=== PATIENT | male | born 1945 | race Caucasian/White ===

== ENCOUNTER 2018-01-31 16:51 | Inpatient (IN) ==
[2018-01-31] MEDS ORDERED: methylPREDNISolone 125 MG/2 ML VIAL IVP ONE (17:32)
[2018-01-31] MEDS ORDERED: Ipratropium/Albuterol Neb 3 ML IH ONE ×2 (17:32→20:02)
--- NOTE | 2018-01-31 17:34 | Emergency Department Note ---
Disposition Clinical Impression: Acute exacerbation of chronic obstructive airways disease, Status post aortic valve replacement, Pneumonia, Abnormal EKG, Abnormal liver function tests, Frail elderly, Hypokalemia Disposition: Admitted As Inpatient Referrals: Raheem Hubbard MD [Primary Care Provider] - Forms: ED Satisfaction Letter General Adult HPI - General Chief complaint: ED Shortness of Breath/Dyspnea Stated complaint: FARIBA Time Seen by Provider: 01/31/18 17:06 Source: EMS Limitations: no limitations - History of Present Illness HPI Narrative: 72-year-old male with history of emphysema reports emergency department complaining of shortness of breath over the last 2 weeks which is Worse. The patient does not have an oxygen requirement at home has been taking steroid medication at home and he reports that they have "given up" indicating that he has had no improvement and is worsening. The patient denies chest pain coughing up blood leg swelling or pain. He is not anticoagulated. No history of previous DVT PE or cancer, he states he has had a cardiac valve replacement but does not take diuretics. As been no fever abdominal pain vomiting diarrhea confusion or any difficulty walking talking hearing seeing or speaking no history of acute back pain. The patient describes a chronic left eye defect. Pain Scale: 0 - Related Data Home Medications Medication Instructions Recorded Confirmed Aspirin 81 mg PO DAILY 09/02/16 01/31/18 Atorvastatin [Lipitor] 40 mg PO DAILY 09/02/16 01/31/18 Metoprolol XL (24 HR) Succ [Toprol 25 mg PO DAILY 09/02/16 01/31/18 Xl] Albuterol Sulfate [Ventolin Hfa] 2 puff IH Q4-6H PRN 01/31/18 01/31/18 Fluticasone/Salmeterol [Advair 1 puff IH BID 01/31/18 01/31/18 250-50 Diskus] Latanoprost [Xalatan] 1 drop OP HS 01/31/18 01/31/18 predniSONE [PredniSONE] See Taper PO DAILY 01/31/18 01/31/18 Allergies Allergy/AdvReac Type Severity Reaction Status Date / Time No Known Allergies Allergy Verified 09/02/16 09:28 All systems ED: reviewed and negative except as stated. Past Medical History - Past Medical History Medical history: Reports: COPD, hyperlipidemia Psychiatric history: Reports: no psych history - Social History Smoking Status: Former smoker Smokeless Tobacco Status: No Alcohol use: Reports: none Drug use: Reports: none Physical Exam - General Limitations: no limitations General appearance: alert - Head Head exam: atraumatic, normocephalic, normal inspection - Eye Eye exam: Present: other (Chronic left eye defects noted right eye unremarkable) - ENT ENT exam: normal exam, normal oropharynx, mucous membranes moist, TM's normal bilaterally, normal external ear exam - Neck Neck exam: Present: normal inspection, full ROM, trachea midline - Chest Chest inspection: Present: symmetric chest wall rise. Absent: tenderness - Respiratory Respiratory exam: Present: wheezes, prolonged expiratory phase. Absent: normal lung sounds bilaterally, respiratory distress, accessory muscle use - Cardiovascular Cardiovascular exam: Present: regular rate, normal rhythm, normal heart sounds - Abdominal Exam Abdominal exam: Present: soft, Non-Tender, normal bowel sounds, diminished bowel sounds. Absent: tenderness, distention, guarding, rebound, rigidity, pulsatile mass - Extremities Exam Extremities exam: Present: normal inspection, full ROM, normal capillary refill. Absent: tenderness, pedal edema, calf tenderness - Back Exam Back exam: Present: normal inspection, full ROM. Absent: tenderness, CVA tenderness (R), CVA tenderness (L), vertebral tenderness - Neurological Exam Neurological exam: Present: alert, oriented X3, other (Chronic left eye defect otherwise cranial nerves II through XII grossly intact.). Absent: motor sensory deficit - Skin Skin exam: Present: warm, dry, intact, normal color. Absent: rash, cyanosis, diaphoresis, erythema, pallor, mottled Course Vital Signs Temperature 97.1 F L 01/31/18 16:55 Pulse Rate 109 01/31/18 16:55 Respiratory Rate 22 01/31/18 16:55 Blood Pressure 156/105 01/31/18 16:55 O2 Sat by Pulse Oximetry 95 01/31/18 16:55 Temperature 97.1 F L 01/31/18 16:55 Pulse Rate 109 01/31/18 16:55 Respiratory Rate 22 01/31/18 16:55 Blood Pressure 156/105 01/31/18 16:55 O2 Sat by Pulse Oximetry 95 01/31/18 16:55 Oxygen Delivery Oxygen Delivery Nasal Cannula Medical Decision Making - MDM Narrative Medical decision making narrative: The patient describes significant shortness of breath, he does not usually wear oxygen, he was placed on 5 L in the emergency department and giving 2 breathing treatments as well as steroids and antibiotics. His chest x-ray shows changes suggestive of pneumonia. He is slightly hypokalemic and hyperglycemic and does have abnormal liver function tests. Blood cultures were sent. BNP negative EKG shows slight ST depressions laterally, no ST elevations, troponin negative. The patient is not describing chest pain. The patient is slightly tachycardic and has been dyspneic, PE is certainly a possibility, d-dimer has been ordered and is pending. The patient seems to be significantly symptomatic from the dyspneic standpoint and has had persistent wheezing. He reports he has been taking steroid medication outpatient and it is no longer helpful. Based on the patient's persistent wheezing status post breathing treatments, apparent pneumonitis, and persistent symptomatology despite outpatient therapy, with significant EKG abnormalities noted, I thought it would be appropriate to admit the patient to the hospital. Further imaging may be helpful to discern the pulmonic changes described on chest x-ray. D-dimer has been ordered at the request the hospitalist who will image further if deemed necessary. The patient is highly greeable to admission. - Lab Data Lab results reviewed: Yes I reviewed the patient's lab results. Result diagrams: 01/31/18 17:47 01/31/18 17:47 Lab Results 01/31/18 01/31/18 01/31/18 Range/Units 17:47 17:47 17:47 WBC 7.9 (4.3-11.1) K/mcL RBC 4.78 (4.19-5.50) M/mcL Hgb 15.0 (12.9-16.9) g/dL Hct 43.7 (37.5-50.1) % MCV 91.4 (83.0-100.0) fL MCH 31.4 (28.0-33.3) pg MCHC 34.3 (31.6-35.5) g/dL RDW 14.2 (11.5-14.5) % Plt Count 134 L (140-400) K/mcL MPV 10.0 (9.4-12.4) fL Immature Gran % 1.8 (0-4) % Seg Neutrophils % 80.3 % Lymphocytes % 9.9 % Monocytes % 7.5 % Eosinophils % 0.0 % Basophils % 0.5 % Neutrophils # 6.3 (1.6-8.9) K/mcL Lymphocytes # 0.8 (0.6-4.6) K/mcL Monocytes # 0.6 (0.0-1.3) K/mcL Eosinophils # 0.0 (0.0-0.6) K/mcL Basophils # 0.0 (0.0-0.2) K/mcL Nucleated RBCs/100 WBC 0.3 H (0) /100 WBC PT 12.8 H (9.4-12.1) Seconds INR 1.2 APTT 26.8 (26.0-36.0) Seconds Sodium 144 (136-145) mEq/L Potassium 3.2 L (3.5-5.1) mEq/L Chloride 102 (98-107) mEq/L Carbon Dioxide 27 (23-29) mEq/L BUN 23 (8-23) mg/dL Creatinine 0.73 (0.70-1.30) mg/dL Est GFR ( Amer) > 60 (> 60) Est GFR (Non-Af Amer) > 60 (> 60) BUN/Creatinine Ratio 32 H (6-26) Glucose 90 (70-105) mg/dL Calculated Osmolality 301 H (280-300) Lactic Acid (0.5-2.2) mmol/L Calcium 8.9 (8.6-10.3) mg/dL Total Bilirubin 1.4 H (0.3-1.0) mg/dL Direct Bilirubin 0.4 H (0.0-0.2) mg/dL Indirect Bilirubin 1.0 (0.0-1.2) mg/dL AST 42 H (13-39) Units/L ALT 30 (7-52) Units/L Alkaline Phosphatase 79 (34-104) Units/L Troponin I < 0.03 (< 0.04) ng/mL C-Reactive Protein (Less than 10) mg/L B-Natriuretic Peptide (Less than 100) pg/mL Serum Total Protein 6.5 (6.4-8.9) g/dL Albumin 3.7 (3.5-5.7) g/dL Globulin 2.8 (2.4-3.5) g/dL Albumin/Globulin Ratio 1.3 (1.1-2.2) 01/31/18 01/31/18 01/31/18 Range/Units 17:47 17:47 17:47 WBC (4.3-11.1) K/mcL RBC (4.19-5.50) M/mcL Hgb (12.9-16.9) g/dL Hct (37.5-50.1) % MCV (83.0-100.0) fL MCH (28.0-33.3) pg MCHC (31.6-35.5) g/dL RDW (11.5-14.5) % Plt Count (140-400) K/mcL MPV (9.4-12.4) fL Immature Gran % (0-4) % Seg Neutrophils % % Lymphocytes % % Monocytes % % Eosinophils % % Basophils % % Neutrophils # (1.6-8.9) K/mcL Lymphocytes # (0.6-4.6) K/mcL Monocytes # (0.0-1.3) K/mcL Eosinophils # (0.0-0.6) K/mcL Basophils # (0.0-0.2) K/mcL Nucleated RBCs/100 WBC (0) /100 WBC PT (9.4-12.1) Seconds INR APTT (26.0-36.0) Seconds Sodium (136-145) mEq/L Potassium (3.5-5.1) mEq/L Chloride (98-107) mEq/L Carbon Dioxide (23-29) mEq/L BUN (8-23) mg/dL Creatinine (0.70-1.30) mg/dL Est GFR ( Amer) (> 60) Est GFR (Non-Af Amer) (> 60) BUN/Creatinine Ratio (6-26) Glucose (70-105) mg/dL Calculated Osmolality (280-300) Lactic Acid 1.8 (0.5-2.2) mmol/L Calcium (8.6-10.3) mg/dL Total Bilirubin (0.3-1.0) mg/dL Direct Bilirubin (0.0-0.2) mg/dL Indirect Bilirubin (0.0-1.2) mg/dL AST (13-39) Units/L ALT (7-52) Units/L Alkaline Phosphatase (34-104) Units/L Troponin I (< 0.04) ng/mL C-Reactive Protein 152 H (Less than 10) mg/L B-Natriuretic Peptide 170 H (Less than 100) pg/mL Serum Total Protein (6.4-8.9) g/dL Albumin (3.5-5.7) g/dL Globulin (2.4-3.5) g/dL Albumin/Globulin Ratio (1.1-2.2) - Radiology Data Radiology results reviewed: Yes I reviewed the patient's radiology results.
[2018-01-31 18:00] LABS: Basophils % 0.5 %; Hematocrit 43.7 % (37.5-50.1); Immature Granulocytes % 1.8 % (0-4); Lymphocytes # 0.8 K/mcL (0.6-4.6); Lymphocytes % 9.9 %; Mean Corpuscular HGB Conc 34.3 g/dL (31.6-35.5); Mean Corpuscular Hemoglobin 31.4 pg (28.0-33.3); Mean Corpuscular Volume 91.4 fL (83.0-100.0); Monocytes # 0.6 K/mcL (0.0-1.3); Monocytes % 7.5 %; Neutrophils # 6.3 K/mcL (1.6-8.9); Nucleated Red Blood Cells 0.3 /100 WBC (0); Platelet Count 134 K/mcL (140-400); Red Blood Count 4.78 M/mcL (4.19-5.50); Red Cell Distribution Width 14.2 % (11.5-14.5); Segmented Neutrophils % 80.3 %
[2018-01-31 18:06] LABS: INR 1.2; Prothrombin Time 12.8 Seconds (9.4-12.1)
[2018-01-31 18:09] LABS: Activated Partial Thrombo Time 26.8 Seconds (26.0-36.0)
[2018-01-31 18:25] LABS: Troponin I < 0.03 ng/mL (< 0.04)
[2018-01-31 18:28] LABS: Alanine Aminotransferase 30 Units/L (7-52); Albumin 3.7 g/dL (3.5-5.7); Albumin/Globulin Ratio 1.3 (1.1-2.2); Alkaline Phosphatase 79 Units/L (34-104); Aspartate Amino Transferase 42 Units/L (13-39); BUN/Creatinine Ratio 32 (6-26); Bilirubin,Direct 0.4 mg/dL (0.0-0.2); Bilirubin,Total 1.4 mg/dL (0.3-1.0); Blood Urea Nitrogen 23 mg/dL (8-23); Calcium 8.9 mg/dL (8.6-10.3); Carbon Dioxide 27 mEq/L (23-29); Chloride 102 mEq/L (98-107); Globulin 2.8 g/dL (2.4-3.5); Glucose 90 mg/dL (70-105); Osmolality,Calculated 301 (280-300); Potassium 3.2 mEq/L (3.5-5.1); Sodium 144 mEq/L (136-145); Total Protein 6.5 g/dL (6.4-8.9); eGFR For African Americans > 60 (> 60); eGFR For Non-African Americans > 60 (> 60)
[2018-01-31] MEDS ORDERED: Levofloxacin 750 MG/150 ML 750 MG/150 ML BAG IVPB ONE (19:25)
[2018-01-31] MEDS ORDERED: Naloxone 0.4 MG/ML INJ IVP PRN (21:12)
[2018-01-31] MEDS ORDERED: Acetaminophen 325 MG TABLET PO PRN (21:12)
--- NOTE | 2018-01-31 21:38 | Internal Med History&Physical ---
Date of Encounter: 01/31/18 Time of Encounter: 21:36 Internal Medicine - H&P: HPI Chief complaint: shortness of breath Admitted From: Emergency Dept Plans for Post Hospital Care: Home History of present illness: Mr. Baker is a 72 year old male with past medical history of COPD, hypertension , carotid artery disease, and a bioprosthetic aortic valve who presents to [facility] on 01/31/2018 with complaints of shortness of breath. Patient states his shortness of breath began on of last week. He does have chronic dyspnea at baseline. However, he noted that he began to become extremely exertionally dyspneic. His exertional dyspnea has increased, and became so severe today that he decided to come to the emergency department. He does report a cough and pain in his left shoulder during coughing. He reports some chest congestion and describes his cough as wet, yet nonproductive. Patient does have a 50 year pack history of cigarette smoking. He reports smoking cessation appoximately one week ago. Patient underwent a carotid endarterectomy in September 2016. He underwent aortic valve replacement with a bioprosthetic valve approximately 3 [address] performed [address] Vee. He denies any history of blood clots including DVTs or PE. He denies any recent travel. He is not currently on any anticoagulation. He does report a syncopal episode last week in the morning on Tuesday. He states he was taking his heart medication, and all he remembers is hitting the ground and waking up fairly quickly. He denies any dizziness, lightheadedness, or shortness of breath prior to syncopizing. Currently, patient denies any chest pain, palpitations, nausea, or diaphoresis. He denies any diarrhea, melena, hematochezia, or hematemesis. He denies any lower extremity swelling. He denies any abdominal pain, headaches, dizziness, or lightheadedness. Past Med Surg Social Fam HX - Past Medical History Attestation: Yes The following information was validated with the patient. Source: patient, old records reviewed Medical history: COPD, hyperlipidemia, valvular heart disease Psychiatric history: no psych history - Past Surgical History Surgical History: carotid endarterectomy, heart valve replacement (Bioprosthetic ) - Social History Smoking Status: Former smoker (Quit 1 week ago) Smokeless Tobacco Status: No Alcohol use: none Drug use: none - Family History Father Living Status: Hx Family Cardiac Disorders: Yes Mother Living Status: Hx Family GI Disorders: Yes (cirrhosis) Internal Medicine - H&P: Meds Aspirin 81 mg PO DAILY 09/02/16 [History] Atorvastatin [Lipitor] 40 mg PO DAILY 09/02/16 [History] Metoprolol XL (24 HR) Succ [Toprol Xl] 25 mg PO DAILY 09/02/16 [History] Albuterol Sulfate [Ventolin Hfa] 2 puff IH Q4-6H PRN 01/31/18 [History] Fluticasone/Salmeterol [Advair 250-50 Diskus] 1 puff IH BID 01/31/18 [History] Latanoprost [Xalatan] 1 drop OP HS 01/31/18 [History] predniSONE [PredniSONE] See Taper PO DAILY 01/31/18 [History] 3 Allergy/AdvReac Type Severity Reaction Status Date / Time No Known Allergies Allergy Verified 09/02/16 09:28 All Systems PM: A 10-system review of systems was performed and is negative for pertinent findings except as documented above in the HPI. - Constitutional Constitutional: no chills, no fever(s), no night sweats, no weakness, no weight gain, no weight loss - EENT Eyes: other visual disturbances (Patient is legally blind in his left eye.), no decreased night vision Nose, mouth and throat: no nasal congestion, no nasal discharge, no sinus pain, no sinus pressure, no sore throat - Cardiovascular Cardiovascular ROS IM: dyspnea, dyspnea on exertion, no chest pain, no claudication, no diaphoresis, no edema, no irregular heart rhythm, no lightheadedness, no orthopnea, no palpitations, no paroxysmal nocturnal dyspnea , no syncope - Respiratory Respiratory: cough, dyspnea, dyspnea on exertion, chest congestion, pain with cough, no hemoptysis, no excessive phlegm production - Gastrointestinal Gastrointestinal: no abdominal pain, no diarrhea, no hematemesis, no hematochezia, no loose stools, no melena, no nausea, no odynophagia - Genitourinary Genitourinary ROS male: no difficulty urinating, no dysuria, no hematuria - Musculoskeletal Musculoskeletal ROS IM: no joint swelling, no limited range of motion - Integumentary Integumentary IM: no erythema, no rash, no jaundice - Neurological Neurological ROS: no abnormal movements, no abnormal speech, no focal weakness, no frequent falls, no lack of coordination - Endocrine Endocrine IM: no cold intolerance, no heat intolerance - Constitutional Vitals: Temp Pulse Resp BP Pulse Ox 97.1 F L 68 16 141/84 95 01/31/18 16:55 01/31/18 21:00 01/31/18 21:00 01/31/18 21:00 01/31/18 21:00 General appearance: Present: cooperative, mild distress, A&O X 3, pleasant, answers questions appropriately - Head Head exam: Present: atraumatic, normocephalic - Eye Eye exam: Present: conjuntiva pink, sclera anicteric Additional comments: Left eye chronically droopy and appears with white film over the eye. - Neck Neck exam general surgery: Present: supple, trachea midline. Absent: lymphadenopathy - Respiratory Respiratory exam: Present: prolonged expiratory phase, rhonchi, tachypnea. Absent: accessory muscle use, rales, wheezes - Cardiovascular Cardiovascular exam: Present: +S1, +S2, tachycardia. Absent: diastolic murmur, gallop, rubs, systolic murmur - GI/Abdominal GI/Abdominal exam: Present: normal bowel sounds, soft, no peritoneal signs. Absent: distended, guarding, hernia, tenderness - Extremities Exam Extremities exam: Present: warm, radial pulses palpable and symmetrical. Absent : calf tenderness, cyanotic, pedal edema - Neurological Exam Neurological exam: Present: CN II-XII intact, oriented X3, no focal deficits. Absent: pronater drift, facial droop, speech deficit - Skin Skin exam: Present: dry, intact, warm Internal Med - H&P Results - Labs CBC & Chem 7: 01/31/18 17:47 01/31/18 17:47 - Assessment and plan (1) Acute exacerbation of chronic obstructive airways disease Current Visit: Yes Status: Acute Assessment and plan: 72-year-old male with acute on chronic shortness of breath presents to the ED tachycardic, tachypnea, and hypoxic. -Chest x-ray concerning for left-sided subpulmonic pulmonary effusion. -Patient satting mid 90s on 5 L nasal cannula. -Still suspicious for underlying PE. D-dimer obtained was positivly elevated to 1200. We will progress with CTA. -Patient markedly wheezy and rhonchorous on arrival. We will continue every 4 hours duo nebs, cardiac telemetry, IV steroids, and IV Levaquin. -Continue to monitor closely. (2) Dyspnea Current Visit: Yes Status: Acute Assessment and plan: Suspect this is due to COPD exacerbation. However, due to patient's pleuritic chest pain, persistent tachycardia, and dyspnea, we will obtain CTA to rule out pulmonary embolism. -consider limited echo Qualifiers: Dyspnea type: dyspnea on exertion Qualified Code(s): R06.09 - Other forms of dyspnea (3) Pneumonia Current Visit: Yes Status: Acute Assessment and plan: Will provide coverage for potential underlying pneumonia suggested on chest x- ray with IV Levaquin. -Will await results of CTA obtained to rule out PE to further guide treatment. Qualifiers: Pneumonia type: due to unspecified organism Laterality: left Lung location: unspecified part of lung Qualified Code(s): J18.9 - Pneumonia, unspecified organism (4) Abnormal EKG Current Visit: Yes Status: Acute Assessment and plan: Patient with ST depression in the lateral leads and EKG obtained in ED. Suspect this is secondary to poor respiratory status. Suspect demand ischemia. -We will repeat EKG in the morning and trend troponins. -consider cardiology consult (5) Hypokalemia Current Visit: Yes Status: Acute Assessment and plan: Replete as necessary. (6) Status post aortic valve replacement Current Visit: Yes Status: Chronic Assessment and plan: Chronic, stable. (7) DVT prophylaxis Current Visit: Yes Status: Acute Assessment and plan: Heparin 5000 units subcutaneous twice a day. - Time Spent With Patient Total time spent is greater than 50% in coordination of care (as documented) at patient's floor/unit and/or counseling patient:
[2018-01-31 22:01] LABS: Magnesium 2.1 mg/dL (1.6-2.6); Phosphorous 2.1 mg/dL (2.7-4.5)
[2018-01-31] MEDS ORDERED: Isovue-370 500 ML INFUS..BTL IV ONE (22:01)
[2018-01-31 22:03] LABS: Troponin I 0.04 ng/mL (< 0.04)
--- NOTE | 2018-01-31 22:05 | Event Note ---
Date of Encounter: 01/31/18 Time of Encounter: 21:58 Patient was seen and examined. I agree with the H&P as written by the Resident Physician. Patient with respiratory symptoms for a week or so. Came through the ED and is on 5L. Not sure how low his O2 was on RA. Was wheezing per ED and got a work up that showed no leukocytosis. K was 3.2. Trops <.03. Cough causes pain in the shoulders but no chest pain. EKG with mild ST depression in lateral leads. CXR with ??left basilar infiltrate and new moderate left subpulmonic pleural effision. He got IV steroids and a couple of nebs treatments. Got IV levaquin too. Patient is tachycardic and requiring 5 L O2. Also hypertensive Course breath sounds but no wheezing on my exam Tachycardic, S1, S2, Abd soft, NT, ND, +BS No edema Will admit and get D-dimers. CXR is not really informative. CTA chest if d-dimers elevated. CT chest w/o cont if not elevated c/w IV steroids and levaquin. Nebs. O2 support. Trend cardiac enzymes. ST depression maybe related to respiratory symptoms Would repeat an EKG in am. Consider a consult to cardio. Recent echo in October EF 60%. Mod diastolic dysfunction. Has a bioprosthetic valve. Consider limited echo
[2018-01-31] MEDS: methylPREDNISolone 125 MG/2 ML VIAL IVP SCH (23:05)
[2018-01-31] MEDS: Latanoprost 2.5 ML BOTTLE BOTH EYES SCH (23:05)
[2018-01-31] MEDS: *HR* Heparin 5,000 UNIT/ML VIAL SQ SCH (23:05)
[2018-02-01] MEDS: Ipratropium/Albuterol Neb 3 ML IH SCH ×6 (00:05→20:04)
[2018-02-01 03:40] LABS: Basophils % 0.2 %; Hematocrit 41.3 % (37.5-50.1); Hemoglobin 13.9 g/dL (12.9-16.9); Lymphocytes # 0.7 K/mcL (0.6-4.6); Lymphocytes % 9.2 %; Mean Corpuscular HGB Conc 33.7 g/dL (31.6-35.5); Mean Corpuscular Hemoglobin 30.3 pg (28.0-33.3); Mean Platelet Volume 10.4 fL (9.4-12.4); Monocytes # 0.3 K/mcL (0.0-1.3); Monocytes % 3.5 %; Neutrophils # 6.8 K/mcL (1.6-8.9); Platelet Count 124 K/mcL (140-400); Red Blood Count 4.59 M/mcL (4.19-5.50); Red Cell Distribution Width 14.3 % (11.5-14.5); Segmented Neutrophils % 85.1 %
[2018-02-01 03:56] LABS: BUN/Creatinine Ratio 27 (6-26); Blood Urea Nitrogen 19 mg/dL (8-23); Calcium 8.9 mg/dL (8.6-10.3); Carbon Dioxide 26 mEq/L (23-29); Chloride 102 mEq/L (98-107); Glucose 118 mg/dL (70-105); Osmolality,Calculated 301 (280-300); Potassium 3.2 mEq/L (3.5-5.1); Sodium 144 mEq/L (136-145); eGFR For African Americans > 60 (> 60); eGFR For Non-African Americans > 60 (> 60)
[2018-02-01] MEDS: *HR* Heparin 5,000 UNIT/ML VIAL SQ SCH ×2 (06:03→17:17)
[2018-02-01] MEDS: Budesonide/Formoterol 80/4.5 MDI IH SCH ×2 (08:00→20:04)
[2018-02-01] MEDS: Aspirin 81 MG TAB.CHEW PO SCH (08:10)
[2018-02-01] MEDS: methylPREDNISolone 125 MG/2 ML VIAL IVP SCH ×3 (08:10→23:26)
[2018-02-01] MEDS: Levofloxacin 750 MG/150 ML 750 MG/150 ML BAG IVPB SCH (08:11)
[2018-02-01] MEDS ORDERED: Metoprolol XL (24 HR) Succ 25 MG TAB.ER.24H PO SCH (09:00)
[2018-02-01] MEDS ORDERED: Metoprolol XL (24 HR) Succ 25 MG TAB.ER.24H PO ONE (09:52)
--- NOTE | 2018-02-01 11:39 | Pulmonology Consult Note ---
Date of Encounter: 02/01/18 Time of Encounter: 11:30 Assessment and Plan (1) Hilar mass Current Visit: Yes Status: Acute Patient with left hilar mass with some mediastinal lymphadenopathy coming with some shortness of breath and cough given his risk factors this looks like a primary lung malignancy. To keep nothing by mouth from midnight. Will do EBUS under general anesthesia tomorrow morning. (2) Acute exacerbation of chronic obstructive airways disease Current Visit: Yes Status: Acute To continue with bronchodilators steroids, antibiotics (3) Acute and chronic respiratory failure with hypoxia Current Visit: Yes Status: Acute Continue O2 supplementation to keep SPO2 around 90. History of Present Illness Consult date: 02/01/18 Requesting physician: Senait Lemos Chief complaint: Shrotness of breadth History of present illness: 72-year-old male with past medical history significant for O2 dependent COPD with emphysematous changes, hypertension, carotid artery disease, aortic valve disease had a bioprosthetic valve replacement 3 years ago. Had carotid endarterectomy in 2016. Coming with one week of shortness of breath which is more than usual from his baseline started to have cough and little bit of left shoulder pain, denies much cough not much sputum production no hemoptysis. Baseline his exercise tolerance is poor, has a 50 pack smoking history which he stopped 1 week ago. Denies any fever or chills any undue chest pain or chest tightness denies any abdominal symptoms denies any headache, double vision, any other neurological symptoms. During the workup patient had a CTA which was negative for PE but found to have this left hilar mass with possible postobstructive pneumonia. Pulmonary was consulted for evaluation of his hilar mass and possible biopsy. Past Med Surg Social Fam HX - Past Medical History Medical history: COPD, hyperlipidemia, valvular heart disease Psychiatric history: no psych history - Past Surgical History Surgical History: carotid endarterectomy, heart valve replacement (Bioprosthetic ) - Social History Smoking Status: Former smoker (Quit 1 week ago) Smokeless Tobacco Status: No Alcohol use: none Drug use: none - Family History Father Living Status: Hx Family Cardiac Disorders: Yes Mother Living Status: Hx Family GI Disorders: Yes (cirrhosis) Medications and Allergies Aspirin 81 mg PO DAILY 09/02/16 [History] Atorvastatin [Lipitor] 40 mg PO DAILY 09/02/16 [History] Metoprolol XL (24 HR) Succ [Toprol Xl] 25 mg PO DAILY 09/02/16 [History] Albuterol Sulfate [Ventolin Hfa] 2 puff IH Q4-6H PRN 01/31/18 [History] Fluticasone/Salmeterol [Advair 250-50 Diskus] 1 puff IH BID 01/31/18 [History] Latanoprost [Xalatan] 1 drop OP HS 01/31/18 [History] predniSONE [PredniSONE] See Taper PO DAILY 01/31/18 [History] 3 Allergy/AdvReac Type Severity Reaction Status Date / Time No Known Allergies Allergy Verified 09/02/16 09:28 All Systems: The remainder of the systems were reviewed and are negative Physical Examination Vital Signs: Vital Signs, Last 4 Hours Temp Pulse Resp BP Pulse Ox 02/01/18 11:17 16 99 02/01/18 08:00 16 99 02/01/18 07:41 97.8 F 78 16 168/97 94 Auscultation: bilateral: wheezes Results - Laboratory Findings CBC and BMP: 02/01/18 03:14 02/01/18 03:14 PT/INR, D-dimer PT 12.8 Seconds (9.4-12.1) H 01/31/18 17:47 D-Dimer 1249 ng/mLFEU (0-500) H 01/31/18 21:24 Abnormal lab findings: Abnormal lab results Plt Count 124 K/mcL (140-400) L 02/01/18 03:14 Nucleated RBCs/100 WBC 0.3 /100 WBC (0) H 01/31/18 17:47 PT 12.8 Seconds (9.4-12.1) H 01/31/18 17:47 D-Dimer 1249 ng/mLFEU (0-500) H 01/31/18 21:24 Potassium 3.2 mEq/L (3.5-5.1) L 02/01/18 03:14 BUN/Creatinine Ratio 27 (6-26) H 02/01/18 03:14 Glucose 118 mg/dL (70-105) H 02/01/18 03:14 Calculated Osmolality 301 (280-300) H 02/01/18 03:14 Phosphorus 2.1 mg/dL (2.7-4.5) L 01/31/18 21:24 Total Bilirubin 1.4 mg/dL (0.3-1.0) H 01/31/18 17:47 Direct Bilirubin 0.4 mg/dL (0.0-0.2) H 01/31/18 17:47 AST 42 Units/L (13-39) H 01/31/18 17:47 C-Reactive Protein 152 mg/L (Less than 10) H 01/31/18 17:47 B-Natriuretic Peptide 170 pg/mL (Less than 100) H 01/31/18 17:47 - Clinical Findings Intake & Output: Intake & Output 01/31/18 02/01/18 02/01/18 23:59 07:59 15:59 Output Total 320 / 320 Balance -320 / -320 Consult Discharge Plan - Plan Referrals: Melquiades Roberts MD [Partnered Physician] - 02/15/18 2:45 pm
--- NOTE | 2018-02-01 12:29 | Electrocardiograph Report ---
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
--- NOTE | 2018-02-01 12:31 | Electrocardiograph Report ---
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
--- NOTE | 2018-02-01 12:45 | Oncology Inp Consult Note ---
<Marisel Gilmore - Last Filed: 02/01/18 16:49> Date of Encounter: 02/01/18 Time of Encounter: 12:43 Assessment and Plan (1) Hilar mass Status: Acute Assessment and plan: CTA reveals left hilar mass with invasion of the left lower lobe airway, and secondary collapse and consolidation of the left lower lobe. Enlarged AP window lymph nodes also observed. There is a small moderate-sized left pleural effusion. The radiographic evidence as detailed above which is concerning for primary lung carcinoma was discussed with patient at bedside today. Pulmonary consulted for potential bronch with biopsy, planned for tomorrow morning. Will likely plan for outpatient PET scan and Brain MRI once final pathology report received. Mr. Baker has decreased breath sounds to LLL, he is symptomatic with exertional dyspnea greatly limiting his activity. Now requiring oxygen per nasal cannula which is new for patient. Will arrange for follow up with medical oncology for discussion regarding final pathology, further staging workup and treatment discussion. Please refer to Dr. Peng's attestation below for additional details. - Data of Consult Patient: new to practice Consult date: 02/01/18 Requesting Physician: Moisés Orellana Primary Care Provider: Raheem Hubbard MD - Consult Narrative Reason for consult: Left hilar mass History of present illness: Mr. Baker is a 72 year old male with past medical history significant for COPD , hypertension, carotid artery disease, and a bioprosthetic aortic valve. Patient presented to [facility] on 01/31/2018 with complaints of progressive shortness of breath. He does have SOB at baseline but has began to experience extreme SOB on exertion which led to his presentation. He does report a cough and pain in his left shoulder during coughing. Patient underwent a carotid endarterectomy in September 2016. He underwent aortic valve replacement with a bioprosthetic valve approximately 3 years [address] performed [address] Vee. Mr. Baker has a 50 pack year history. He reports he quit smoking about one week ago. He lives at home with his . Past Med Surg Social Fam HX - Past Medical History Medical history: COPD, hyperlipidemia, valvular heart disease Psychiatric history: no psych history - Past Surgical History Surgical History: carotid endarterectomy, heart valve replacement (Bioprosthetic ) - Social History Smoking Status: Former smoker (Quit 1 week ago) Smokeless Tobacco Status: No Alcohol use: none Drug use: none - Family History Father Living Status: Hx Family Cardiac Disorders: Yes Mother Living Status: Hx Family GI Disorders: Yes (cirrhosis) Medications and Allergies Aspirin 81 mg PO DAILY 09/02/16 [History] Atorvastatin [Lipitor] 40 mg PO DAILY 09/02/16 [History] Metoprolol XL (24 HR) Succ [Toprol Xl] 25 mg PO DAILY 09/02/16 [History] Albuterol Sulfate [Ventolin Hfa] 2 puff IH Q4-6H PRN 01/31/18 [History] Fluticasone/Salmeterol [Advair 250-50 Diskus] 1 puff IH BID 01/31/18 [History] Latanoprost [Xalatan] 1 drop OP HS 01/31/18 [History] predniSONE [PredniSONE] See Taper PO DAILY 01/31/18 [History] 3 Allergy/AdvReac Type Severity Reaction Status Date / Time No Known Allergies Allergy Verified 09/02/16 09:28 Constitutional: Present: anorexia, fatigue, weakness, weight loss (4-6 pounds over past week ) Additional comments: 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 Absent: hemoptysis Gastrointestinal: Absent: abdominal pain, change in bowel habits, diarrhea, nausea, vomiting Additional comments: denies dysuria Musculoskeletal: Absent: numbness, tingling Integumentary: Absent: wounds Neurological: Absent: focal weakness, frequent falls Hematologic/Lymphatic: Present: as per HPI Oncology - Exam - Constitutional Vitals: Temp Pulse Resp BP Pulse Ox 98.0 F 106 19 149/77 92 02/01/18 12:02 02/01/18 12:02 02/01/18 12:02 02/01/18 12:02 02/01/18 12:02 General appearance: cooperative, no acute distress, no febrile Exam: chronically ill appearing - Head Head exam: Present: atraumatic - ENT ENT exam: Present: mucous membranes moist - Respiratory Respiratory exam: Present: decreased breath sounds. Absent: respiratory distress - Cardiovascular Cardiovascular exam: Present: RRR, +S1, +S2 - GI/Abdominal GI/Abdominal exam: Present: normal bowel sounds, soft. Absent: tenderness - Extremities Exam Extremities exam: Present: normal inspection. Absent: calf tenderness - Neurological Exam Neurological exam: Present: alert, oriented X3, no focal deficits, strengths equal and symetr throughout - Psychiatric Psychiatric exam: Present: normal affect, normal mood - Skin Skin exam: Present: dry, intact, normal color, warm Oncology - Results Labs: Short CBC 02/01/18 Range/Units 03:14 WBC 8.0 (4.3-11.1) K/mcL Hgb 13.9 (12.9-16.9) g/dL Hct 41.3 (37.5-50.1) % Plt Count 124 L (140-400) K/mcL Neutrophils # 6.8 (1.6-8.9) K/mcL BMP 02/01/18 03:14 Sodium 144 Potassium 3.2 L Chloride 102 Carbon Dioxide 26 BUN 19 Creatinine 0.70 Glucose 118 H Calcium 8.9 Cardiac Enzymes 01/31/18 02/01/18 02/01/18 Range/Units 21:24 03:14 08:49 Troponin I 0.04 H* 0.05 H* 0.03 (< 0.04) ng/mL Consult Discharge Plan - Plan Referrals: Melquiades Roberts MD [Partnered Physician] - 02/15/18 2:45 pm <Tyshawn Peng - Last Filed: 02/02/18 14:03> Date of Encounter: 02/01/18 - Data of Consult Requesting Physician: Moisés Orellana Primary Care Provider: Raheem Hubbard MD - Consult Narrative History of present illness: Mr. Baker is a 72 year old male Oncology - Exam - Constitutional Vitals: Temp Pulse Resp BP Pulse Ox 97.9 F 99 16 122/75 95 02/02/18 12:09 02/02/18 12:09 02/02/18 12:09 02/02/18 12:09 02/02/18 12:09 Oncology - Results Labs: Short CBC 02/02/18 Range/Units 06:11 WBC 9.4 (4.3-11.1) K/mcL Hgb 12.8 L (12.9-16.9) g/dL Hct 37.5 (37.5-50.1) % Plt Count 109 L (140-400) K/mcL BMP 02/02/18 06:11 Sodium 144 Potassium 3.4 L Chloride 106 Carbon Dioxide 29 BUN 23 Creatinine 0.65 L Glucose 135 H Calcium 8.8 - Attending Attestation Seen and examined patient and agree with above. He has significant burden of disease. Giuven the large pleural effusion and the susipicion of lung cancer, he likely has stage IV lung cancer. He is slated for bronchoscopic bx tomorrow. Will plan for PET scan and MRI brain as outpatient next week and f/u with med/onc later in the week to discuss the results. We discussed the likey stage and diagnosis with the patient.
--- NOTE | 2018-02-01 13:37 | Internal Med Progress Note ---
Date of Encounter: 02/01/18 Time of Encounter: 13:46 - Assessment and plan (1) Acute exacerbation of chronic obstructive airways disease Current Visit: Yes Status: Acute Assessment and plan: Has known history of COPD; former smoker. Symptomatic with shortness of breath and wheezing. CXR nonacute. Chest CTA negative for pulmonary embolism but did show new perihilar mass. Cont IV Levaquin, steroids and bronchodilators. (2) Hilar mass Current Visit: Yes Status: Acute Assessment and plan: chest CTA left hilar mass with invasion of the left lower lobe airway and secondary collapse and consolidation of the left lower lobe concerning for primary lung carcinoma. Bronchoscopy planned 02/02/18. Pulmonology and oncology following (3) Status post aortic valve replacement Current Visit: Yes Status: Chronic Assessment and plan: Chronic, stable. (4) Abnormal EKG Current Visit: Yes Status: Acute Assessment and plan: ED EKG with ST depression; denies chest pain. serial troponin 0.04, 0.05, 0.03. No known CAD. No previous ischemic evaluation. Check echocardiogram, repeat EKG. Continue home ASA. Consider stress test this hospitalization after bronchoscopy (5) Hypokalemia Current Visit: Yes Status: Acute Assessment and plan: K 3.2; placement ordered. Monitor repeat CMP (6) Essential hypertension Current Visit: Yes Status: Acute Assessment and plan: per hx. BP variable; home BB increased. Monitor BP and titrate PRN (7) DVT prophylaxis Current Visit: Yes Status: Acute Assessment and plan: Heparin - Time Spent With Patient Total time spent is greater than 50% in coordination of care (as documented) at patient's floor/unit and/or counseling patient: - Subjective Interval history: Seen and examined at bedside. Patient is new to me, information obtained from chart review and patient report. Still having some shortness of breath but overall improved from arrival. Denies chest pain. Has a productive cough at times. He is aware of plan for bronchoscopy tomorrow - Constitutional Vitals: Temp Pulse Resp BP Pulse Ox 98.0 F 106 19 149/77 92 02/01/18 12:02 02/01/18 12:02 02/01/18 12:02 02/01/18 12:02 02/01/18 12:02 General appearance: Present: cooperative, A&O X 3, pleasant, answers questions appropriately - Head Head exam: Present: atraumatic, normocephalic - Eye Eye exam: Present: PERRL, conjuntiva pink, sclera anicteric Pupils: Present: PERRL - Neck Neck exam general surgery: Present: supple, trachea midline. Absent: lymphadenopathy - Respiratory Respiratory exam: Present: CTAB, rhonchi, wheezes. Absent: accessory muscle use , rales - Cardiovascular Cardiovascular exam: Present: RRR, +S1, +S2. Absent: diastolic murmur, gallop, rubs, systolic murmur - GI/Abdominal GI/Abdominal exam: Present: normal bowel sounds, soft, no peritoneal signs. Absent: distended, tenderness - Extremities Exam Extremities exam: Present: warm, radial pulses palpable and symmetrical. Absent : calf tenderness, cyanotic, pedal edema - Neurological Exam Neurological exam: Present: CN II-XII intact, oriented X3, no focal deficits. Absent: pronater drift, facial droop, speech deficit - Skin Skin exam: Present: dry, intact Internal Medicine: Result - Labs CBC & Chem 7: 02/01/18 03:14 02/01/18 03:14 Labs: Short CBC 02/01/18 Range/Units 03:14 WBC 8.0 (4.3-11.1) K/mcL Hgb 13.9 (12.9-16.9) g/dL Hct 41.3 (37.5-50.1) % Plt Count 124 L (140-400) K/mcL Neutrophils # 6.8 (1.6-8.9) K/mcL BMP 02/01/18 03:14 Sodium 144 Potassium 3.2 L Chloride 102 Carbon Dioxide 26 BUN 19 Creatinine 0.70 Glucose 118 H Calcium 8.9 Cardiac Enzymes 01/31/18 02/01/18 02/01/18 Range/Units 21:24 03:14 08:49 Troponin I 0.04 H* 0.05 H* 0.03 (< 0.04) ng/mL - ABG Interpretation ABG results: PT/INR, D-dimer PT 12.8 Seconds (9.4-12.1) H 01/31/18 17:47 D-Dimer 1249 ng/mLFEU (0-500) H 01/31/18 21:24 - Impressions Impressions Chest CTA 01/31/18 22:01 IMPRESSION: 1. No evidence of pulmonary embolism. 2. Evidence of a left hilar mass, with invasion of the left lower lobe airway, and secondary collapse and consolidation of the left lower lobe. Findings are concerning for primary lung carcinoma. 3. Numerous centrilobular tree-in-bud nodules with the left upper lobe. These are probably inflammatory, but neoplasm remains in the differential. 4. Severe emphysema. 5. Scarring, atelectasis, or consolidation within the right lower lobe. 6. 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 Status post aortic valve replacement. D/ / Carlos Hayes MD / Carlos Hayes MD Interpreting Provider: Carlos Hayes MD Consult Discharge Plan - Plan Referrals: Melquiades Roberts MD [Partnered Physician] - 02/15/18 2:45 pm
[2018-02-01] MEDS: Latanoprost 2.5 ML BOTTLE BOTH EYES SCH (21:13)
[2018-02-02] MEDS: Ipratropium/Albuterol Neb 3 ML IH SCH ×6 (03:34→20:31)
[2018-02-02] MEDS: *HR* Heparin 5,000 UNIT/ML VIAL SQ SCH ×2 (04:05→18:33)
[2018-02-02 06:37] LABS: Hematocrit 37.5 % (37.5-50.1); Hemoglobin 12.8 g/dL (12.9-16.9); Mean Corpuscular HGB Conc 34.1 g/dL (31.6-35.5); Mean Corpuscular Hemoglobin 30.8 pg (28.0-33.3); Mean Corpuscular Volume 90.4 fL (83.0-100.0); Mean Platelet Volume 10.4 fL (9.4-12.4); Platelet Count 109 K/mcL (140-400); Red Blood Count 4.15 M/mcL (4.19-5.50); Red Cell Distribution Width 14.4 % (11.5-14.5)
[2018-02-02 06:54] LABS: BUN/Creatinine Ratio 35 (6-26); Blood Urea Nitrogen 23 mg/dL (8-23); Calcium 8.8 mg/dL (8.6-10.3); Carbon Dioxide 29 mEq/L (23-29); Chloride 106 mEq/L (98-107); Glucose 135 mg/dL (70-105); Osmolality,Calculated 304 (280-300); Potassium 3.4 mEq/L (3.5-5.1); Sodium 144 mEq/L (136-145); eGFR For African Americans > 60 (> 60); eGFR For Non-African Americans > 60 (> 60)
[2018-02-02] MEDS: Budesonide/Formoterol 80/4.5 MDI IH SCH ×2 (07:42→20:31)
[2018-02-02] MEDS: Metoprolol XL (24 HR) Succ 50 MG TAB.ER.24H PO SCH (08:04)
[2018-02-02] MEDS: Aspirin 81 MG TAB.CHEW PO SCH (08:04)
[2018-02-02] MEDS: methylPREDNISolone 125 MG/2 ML VIAL IVP SCH ×3 (08:04→23:59)
[2018-02-02] MEDS: Levofloxacin 750 MG/150 ML 750 MG/150 ML BAG IVPB SCH (08:05)
[2018-02-02] MEDS: *HR* HYDROcodone/Acet 5/325 mg TABLET PO PRN (13:57)
--- NOTE | 2018-02-02 14:02 | Pulmonology Progress Note ---
Date of Encounter: 02/02/18 Time of Encounter: 13:30 Assessment and Plan (1) Hilar mass Current Visit: Yes Status: Acute Patient had his EBUS TBNA today evening Prelim read is suggestive of malignancy (2) Acute exacerbation of chronic obstructive airways disease Current Visit: Yes Status: Acute To continue Bronchodilators and steroids (3) Acute and chronic respiratory failure with hypoxia Current Visit: Yes Status: Acute To continue O2 supplementation. Subjective Principal diagnosis: Hilar Mass Interval history: Patient doesnt have any new symptoms . Patient is scheduled for EBUS TBNA Objective PUL Vital signs: Last Vital Signs Temp 97.9 F 02/02/18 12:09 Pulse 99 02/02/18 12:09 Resp 16 02/02/18 12:09 BP 122/75 02/02/18 12:09 Pulse Ox 95 02/02/18 12:09 Auscultation: left: rhonchi, bilateral: wheezes (mild scattered wheezes ) Results - Laboratory Findings CBC and BMP: 02/02/18 06:11 02/02/18 06:11 PT/INR, D-dimer PT 12.8 Seconds (9.4-12.1) H 01/31/18 17:47 D-Dimer 1249 ng/mLFEU (0-500) H 01/31/18 21:24 Abnormal lab findings: Abnormal lab results RBC 4.15 M/mcL (4.19-5.50) L 02/02/18 06:11 Hgb 12.8 g/dL (12.9-16.9) L 02/02/18 06:11 Plt Count 109 K/mcL (140-400) L 02/02/18 06:11 Nucleated RBCs/100 WBC 0.3 /100 WBC (0) H 01/31/18 17:47 PT 12.8 Seconds (9.4-12.1) H 01/31/18 17:47 D-Dimer 1249 ng/mLFEU (0-500) H 01/31/18 21:24 Potassium 3.4 mEq/L (3.5-5.1) L 02/02/18 06:11 Creatinine 0.65 mg/dL (0.70-1.30) L 02/02/18 06:11 BUN/Creatinine Ratio 35 (6-26) H 02/02/18 06:11 Glucose 135 mg/dL (70-105) H 02/02/18 06:11 Calculated Osmolality 304 (280-300) H 02/02/18 06:11 Phosphorus 2.1 mg/dL (2.7-4.5) L 01/31/18 21:24 Total Bilirubin 1.4 mg/dL (0.3-1.0) H 01/31/18 17:47 Direct Bilirubin 0.4 mg/dL (0.0-0.2) H 01/31/18 17:47 AST 42 Units/L (13-39) H 01/31/18 17:47 C-Reactive Protein 152 mg/L (Less than 10) H 01/31/18 17:47 B-Natriuretic Peptide 170 pg/mL (Less than 100) H 01/31/18 17:47 - Clinical Findings Intake & Output: Intake & Output 02/01/18 02/02/18 02/02/18 23:59 07:59 15:59 Intake Total 120 / 120 Output Total 150 / 150 200 / 200 Balance -30 / -30 -200 / -200 Weight 64.7 kg Consult Discharge Plan - Plan Referrals: Melquiades Roberts MD [Partnered Physician] - 02/15/18 2:45 pm
--- NOTE | 2018-02-02 14:40 | Internal Med Progress Note ---
Date of Encounter: 02/02/18 Time of Encounter: 14:32 - Assessment and plan (1) Acute exacerbation of chronic obstructive airways disease Current Visit: Yes Status: Acute Assessment and plan: Has known history of COPD; former smoker. Symptomatic with shortness of breath and wheezing. CXR nonacute. Chest CTA negative for pulmonary embolism but did show new perihilar mass. Cont IV Levaquin, steroids and bronchodilators. (2) Hilar mass Current Visit: Yes Status: Acute Assessment and plan: chest CTA left hilar mass with invasion of the left lower lobe airway and secondary collapse and consolidation of the left lower lobe concerning for primary lung carcinoma. Bronchoscopy planned 02/02/18. Pulmonology and oncology following (3) Status post aortic valve replacement Current Visit: Yes Status: Chronic Assessment and plan: Chronic, stable. (4) Abnormal EKG Current Visit: Yes Status: Acute Assessment and plan: ED EKG with ST depression; denies chest pain. serial troponin 0.04, 0.05, 0.03. No known CAD. No previous ischemic evaluation. Check echocardiogram, repeat EKG. Continue home ASA. Consider stress test this hospitalization after bronchoscopy (5) Hypokalemia Current Visit: Yes Status: Acute Assessment and plan: K 3.2; placement ordered. Monitor repeat CMP (6) Essential hypertension Current Visit: Yes Status: Acute Assessment and plan: per hx. BP variable; home BB increased. Monitor BP and titrate PRN (7) DVT prophylaxis Current Visit: Yes Status: Acute Assessment and plan: Heparin - Time Spent With Patient Total time spent is greater than 50% in coordination of care (as documented) at patient's floor/unit and/or counseling patient: - Subjective Interval history: Seen and examined at bedside. Says he is breathing better, still has a productive cough at times. Short of breath worse with exertion. No chest pain. He is aware for plan for bronchoscopy today. - Constitutional Vitals: Temp Pulse Resp BP Pulse Ox 97.9 F 99 16 122/75 95 02/02/18 12:09 02/02/18 12:09 02/02/18 12:09 02/02/18 12:09 02/02/18 12:09 General appearance: Present: cooperative, A&O X 3, pleasant, answers questions appropriately - Head Head exam: Present: atraumatic, normocephalic - Eye Eye exam: Present: PERRL, conjuntiva pink, sclera anicteric Pupils: Present: PERRL - Neck Neck exam general surgery: Present: supple, trachea midline. Absent: lymphadenopathy - Respiratory Respiratory exam: Present: CTAB, rhonchi, wheezes. Absent: accessory muscle use , rales - Cardiovascular Cardiovascular exam: Present: RRR, +S1, +S2. Absent: diastolic murmur, gallop, rubs, systolic murmur - GI/Abdominal GI/Abdominal exam: Present: normal bowel sounds, soft, no peritoneal signs. Absent: distended, tenderness - Extremities Exam Extremities exam: Present: warm, radial pulses palpable and symmetrical. Absent : calf tenderness, cyanotic, pedal edema - Neurological Exam Neurological exam: Present: CN II-XII intact, oriented X3, no focal deficits. Absent: pronater drift, facial droop, speech deficit - Skin Skin exam: Present: dry, intact Internal Medicine: Result - Labs CBC & Chem 7: 02/02/18 06:11 02/02/18 06:11 Labs: Short CBC 02/02/18 Range/Units 06:11 WBC 9.4 (4.3-11.1) K/mcL Hgb 12.8 L (12.9-16.9) g/dL Hct 37.5 (37.5-50.1) % Plt Count 109 L (140-400) K/mcL [facility] 02/02/18 06:11 Sodium 144 Potassium 3.4 L Chloride 106 Carbon Dioxide 29 BUN 23 Creatinine 0.65 L Glucose 135 H Calcium 8.8 - ABG Interpretation ABG results: PT/INR, D-dimer PT 12.8 Seconds (9.4-12.1) H 01/31/18 17:47 D-Dimer 1249 ng/mLFEU (0-500) H 01/31/18 21:24 Consult Discharge Plan - Plan Referrals: Melquiades Roberts MD [Partnered Physician] - 02/15/18 2:45 pm
--- NOTE | 2018-02-02 15:11 | Anesthesia Evaluation PreOp ---
Date of Encounter: 02/02/18 Time of Encounter: 15:08 - Past History Planned Operation: EBUS Cardiac History: LA, HTN, Hyperlipidemia, Cardiac Surgery (AVR) Pulmonary History: Smoker (quit 1 week ago, smoked for 50+ years), COPD AIRCREWMAN History: Denies Any Significant HX Other Medical History: Denies Any Significant HX Anesthesia History: No Prior Anesthetic Complications, Past Anesthesia Alcohol Use: none Drug use: none Medications and Allergies Aspirin 81 mg PO DAILY 09/02/16 [History] Atorvastatin [Lipitor] 40 mg PO DAILY 09/02/16 [History] Metoprolol XL (24 HR) Succ [Toprol Xl] 25 mg PO DAILY 09/02/16 [History] Albuterol Sulfate [Ventolin Hfa] 2 puff IH Q4-6H PRN 01/31/18 [History] Fluticasone/Salmeterol [Advair 250-50 Diskus] 1 puff IH BID 01/31/18 [History] Latanoprost [Xalatan] 1 drop OP HS 01/31/18 [History] predniSONE [PredniSONE] See Taper PO DAILY 01/31/18 [History] 3 Allergy/AdvReac Type Severity Reaction Status Date / Time No Known Allergies Allergy Verified 09/02/16 09:28 - Meds/Allergy Pre-op Review Medications Reviewed: Yes Allergies Reviewed: Yes Beta Blockers on Current Med List: Yes If Beta Blockers taken, Date/Time (Last Dose taken): 02/02/2018 at 0804 Anesthesia Results - Labs 02/02/18 06:11 02/02/18 06:11 - Imaging EKG: report reviewed (01/31/2018 SINUS RHYTHM WITH SHORT [place] INTERVAL LEFT ATRIAL ENLARGEMENT) Additional studies: 10/28/2017 Echo Impressions: LVEF 60%. Moderate left ventricular diastolic dysfunction. Normal right ventricular structure and function. Mild mitral regurgitation. Bioprosthetic aortic valve is not well visualized. No regurgitation. Mean gradient 17 mmHg is similar when compared to prior study, 09/09/2014 and within normal limits for valve type: #21 Mosaic Ultra porcine. Mild-moderate tricuspid regurgitation. Mild pulmonary hypertension. Anesthesia Exam Vital Signs/O2 Sat, Most Current Temp Pulse Resp BP Pulse Ox 97.9 F 99 16 122/75 95 02/02/18 12:09 02/02/18 12:02/02/18 12:02/02/18 12:09 02/02/18 12:09 Height: 5'7'' Weight: 142 lbs NPO (# of Hours): 8 Pain Scale: 0 Pain Scale Used: Numeric (1 - 10) - HEENT Pupil (Motor): EOMI Mallampati: II Teeth: Missing (no upper teeth, has 6 lower teeth), Poor dentition Oral Opening: Greater than 3 - AIRCREWMAN LOC: Oriented AIRCREWMAN Motor: Normal RUE, Normal LUE, Normal RLE, Normal LLE, Normal Face AIRCREWMAN Sensory: Normal: RUE, LUE, RLE, LLE, Face - Cardiac Rhythm: Regular Murmur: Systolic - Pulmonary Breath Sounds: bilateral Clear Respiratory Effort: Symmetrical Anesthesia Assess/Plan ASA Score: 3 Modified Isaak Scale for Level of Consciousness: Cooperative, oriented, and tranquil Anesthetic Plan: General Monitoring Plan: Standard Monitors Recovery Plan: PACU
[2018-02-02] MEDS ORDERED: *HR* Promethazine 25 MG/ML VIAL IVP PRN (16:30)
[2018-02-02] MEDS ORDERED: *HR* Meperidine 25 MG/ML SYRINGE IVP PRN (16:30)
[2018-02-02] MEDS ORDERED: Albuterol 2.5 MG/3 ML NEBULIZER IH PRN (16:30)
[2018-02-02] MEDS ORDERED: *HR* Morphine 2 MG/ML SYRINGE IVP PRN (16:30)
[2018-02-02] MEDS ORDERED: *HR* EPINEPHrine 1 MG/10 ML SYRINGE INTRATRACH PRN (16:41)
--- NOTE | 2018-02-02 17:31 | Anesthesia Evaluation Post Op ---
Date of Encounter: 02/02/18 Time of Encounter: 17:30 - Vital Signs Vital Signs: Vital Signs/O2 Sat, Most Current Temp Pulse Resp BP Pulse Ox 98.6 F 86 18 144/78 92 02/02/18 17:03 02/02/18 17:23 02/02/18 17:23 02/02/18 17:23 02/02/18 17:23 - Lungs Lungs: Clear Ascult./Percussion - Airway Airway: Non-obstructed - Cardiovascular Regular Rate - Mental Status Mental Status: Alert & Oriented, Answers Appropriately - Pain Pain Scale: 0 Pain Scale used: Numeric (1 - 10) - Nausea Vomiting Nausea Vomiting: Not Present - Hydration Hydration: NPO, Has not voided - Discharge PostOp Status: Transfer Patient to floor
[2018-02-02] MEDS: Latanoprost 2.5 ML BOTTLE BOTH EYES SCH (19:45)
[2018-02-03] MEDS: Ipratropium/Albuterol Neb 3 ML IH SCH ×7 (00:24→23:37)
[2018-02-03] MEDS: *HR* HYDROcodone/Acet 5/325 mg TABLET PO PRN ×3 (05:44→18:30)
[2018-02-03] MEDS: *HR* Heparin 5,000 UNIT/ML VIAL SQ SCH ×2 (05:44→17:42)
[2018-02-03 06:02] LABS: Hematocrit 36.7 % (37.5-50.1); Hemoglobin 12.3 g/dL (12.9-16.9); Mean Corpuscular HGB Conc 33.5 g/dL (31.6-35.5); Mean Corpuscular Hemoglobin 30.6 pg (28.0-33.3); Mean Corpuscular Volume 91.3 fL (83.0-100.0); Mean Platelet Volume 10.4 fL (9.4-12.4); Platelet Count 107 K/mcL (140-400); Red Blood Count 4.02 M/mcL (4.19-5.50); Red Cell Distribution Width 14.2 % (11.5-14.5)
[2018-02-03 06:16] LABS: BUN/Creatinine Ratio 31 (6-26); Blood Urea Nitrogen 22 mg/dL (8-23); Calcium 8.5 mg/dL (8.6-10.3); Carbon Dioxide 28 mEq/L (23-29); Chloride 103 mEq/L (98-107); Glucose 113 mg/dL (70-105); Osmolality,Calculated 296 (280-300); Potassium 3.8 mEq/L (3.5-5.1); Sodium 141 mEq/L (136-145); eGFR For African Americans > 60 (> 60); eGFR For Non-African Americans > 60 (> 60)
[2018-02-03] MEDS: Budesonide/Formoterol 80/4.5 MDI IH SCH ×2 (07:23→19:33)
[2018-02-03] MEDS: methylPREDNISolone 125 MG/2 ML VIAL IVP SCH (08:44)
[2018-02-03] MEDS: Aspirin 81 MG TAB.CHEW PO SCH (08:44)
[2018-02-03] MEDS: Levofloxacin 750 MG/150 ML 750 MG/150 ML BAG IVPB SCH (08:45)
[2018-02-03] MEDS: Metoprolol XL (24 HR) Succ 50 MG TAB.ER.24H PO SCH (08:48)
--- NOTE | 2018-02-03 11:04 | Internal Med Progress Note ---
Date of Encounter: 02/03/18 Time of Encounter: 11:03 - Assessment and plan (1) Acute exacerbation of chronic obstructive airways disease Current Visit: Yes Status: Acute Assessment and plan: known history of COPD; former smoker. Symptomatic with shortness of breath and wheezing. CXR nonacute. Chest CTA negative for pulmonary embolism but did show new perihilar mass. Cont IV Levaquin (day 3). Change steroids to PO, bronchodilators. (2) Hilar mass Current Visit: Yes Status: Acute Assessment and plan: chest CTA left hilar mass with invasion of the left lower lobe airway and secondary collapse and consolidation of the left lower lobe concerning for primary lung carcinoma. S/p bronchoscopy 02/02/18; path pending. Pulmonology and oncology following (3) Status post aortic valve replacement Current Visit: Yes Status: Chronic Assessment and plan: TTE with bioprosthetic aortic valve grossly appears well seated. Leaflets not well visualized. 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 Mean gradient 28 mmHg. (4) Abnormal EKG Current Visit: Yes Status: Acute Assessment and plan: ED EKG with ST depression; denies chest pain. serial troponin 0.04, 0.05, 0.03. No known CAD. No previous ischemic evaluation. 02/01/2018 TTE with EF 70%, mild diastolic dysfunction and hyper kinetic wall motion abnormalities. Patient does report intermittent chest pain that radiates to left shoulder. Stress test pending (5) Hypokalemia Current Visit: Yes Status: Acute Assessment and plan: K 3.2; placement ordered. Monitor repeat CMP (6) Essential hypertension Current Visit: Yes Status: Acute Assessment and plan: per hx. BP variable; home BB increased. Monitor BP and titrate PRN (7) DVT prophylaxis Current Visit: Yes Status: Acute Assessment and plan: Heparin - Time Spent With Patient Total time spent is greater than 50% in coordination of care (as documented) at patient's floor/unit and/or counseling patient: - Subjective Interval history: Seen and examined at bedside. Sitting up in bed, turning coffee. Says he feels well, no chest pain or shortness of breath. Has a nonproductive cough. He does tell me that he has had intermittent left-sided chest pain that radiates to just below his left shoulder blade over the past several weeks. Describes pain as a thumb being pushed into his back. - Constitutional Vitals: Temp Pulse Resp BP Pulse Ox 97.7 F 80 16 134/75 98 02/03/18 07:20 02/03/18 07:20 02/03/18 07:23 02/03/18 07:20 02/03/18 07:23 General appearance: Present: cooperative, A&O X 3, pleasant, answers questions appropriately - Head Head exam: Present: atraumatic, normocephalic - Eye Eye exam: Present: PERRL, conjuntiva pink, sclera anicteric Pupils: Present: PERRL - Neck Neck exam general surgery: Present: supple, trachea midline. Absent: lymphadenopathy - Respiratory Respiratory exam: Present: CTAB. Absent: accessory muscle use, rales, rhonchi, wheezes - Cardiovascular Cardiovascular exam: Present: RRR, +S1, +S2. Absent: diastolic murmur, gallop, rubs, systolic murmur - GI/Abdominal GI/Abdominal exam: Present: normal bowel sounds, soft, no peritoneal signs. Absent: distended, tenderness - Extremities Exam Extremities exam: Present: warm, radial pulses palpable and symmetrical. Absent : calf tenderness, cyanotic, pedal edema - Neurological Exam Neurological exam: Present: CN II-XII intact, oriented X3, no focal deficits. Absent: pronater drift, facial droop, speech deficit - Skin Skin exam: Present: dry, intact Internal Medicine: Result - Labs CBC & Chem 7: 02/03/18 05:30 02/03/18 05:30 Labs: Short CBC 02/03/18 Range/Units 05:30 WBC 10.4 (4.3-11.1) K/mcL Hgb 12.3 L (12.9-16.9) g/dL Hct 36.7 L (37.5-50.1) % Plt Count 107 L (140-400) K/mcL BMP 02/03/18 05:30 Sodium 141 Potassium 3.8 Chloride 103 Carbon Dioxide 28 BUN 22 Creatinine 0.71 Glucose 113 H Calcium 8.5 L - ABG Interpretation ABG results: PT/INR, D-dimer PT 12.8 Seconds (9.4-12.1) H 01/31/18 17:47 D-Dimer 1249 ng/mLFEU (0-500) H 01/31/18 21:24 - Impressions Impressions Echocardiogram 02/01/18 13:48 Impressions: LVEF 70%. Normal LV chamber size, wall thickness and function. Mild left ventricular diastolic dysfunction. Normal right ventricular structure and function. Bioprosthetic aortic valve grossly appears well seated. Leaflets not well visualized. 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 Mean gradient 28 mmHg. Moderate pulmonary hypertension. Estimated RVSP is 48 mmHg. Left Ventricular Wall Motion: Rest Echo Findings The apex, apical inferior, mid inferior, basal inferior, apical anterior, mid anterior, basal anterior, apical septal, mid inferior septal, basal inferior septal, apical lateral, mid anterior lateral, basal anterior lateral, mid anterior septal, mid inferior lateral, basal anterior septal and basal inferior lateral ortega were hyperkinetic. Findings: Study Quality * Technically adequate exam. ECG Findings * Sinus tachycardia. Left Ventricle * LVEF 70%. * Normal LV chamber size, wall thickness and function. * Mild left ventricular diastolic dysfunction. Right Ventricle * Normal right ventricular structure and function. Left Atrium * Normal left atrial size. Right Atrium * Normal right atrial size. Aortic Valve * Bioprosthetic aortic valve grossly appears well seated. Leaflets not well visualized. * No aortic regurgitation. 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 Mean gradient 28 mmHg. Mitral Valve * Normal mitral valve structure and function. * No mitral regurgitation. * No mitral stenosis. Tricuspid Valve * Normal tricuspid valve structure and function. * Trace tricuspid regurgitation. * Moderate pulmonary hypertension. * Estimated RVSP is 48 mmHg. * Estimated RA pressure is 5 mmHg. Pulmonic Valve * Normal pulmonic valve structure and function. * No pulmonic regurgitation. Aorta * Normally sized aortic root. Pericardium * The pericardium appears normal. IVC * Normal IVC dimensions and inspiratory collapse. Pulmonary Artery * Normal visualized portions of the main pulmonary artery. Consult Discharge Plan - Plan Referrals: Melquiades Roberts MD [Partnered Physician] - 02/15/18 2:45 pm
--- NOTE | 2018-02-03 13:48 | Electrocardiograph Report ---
[address] [place], [place] [address] Test Date: 2018-02-02 Pat Name: Timi Baker Department: 113 Room: 3B32 Gender: M Suit Attendant: : 1945 Requested By: Moisés Orellana Order Number: [id number] Reading MD: Shane Anaya Measurements Intervals [place] Rate: 85 P: 38 MD: 110 QRS: 24 QRSD: 93 T: 12 QT: 413 QTc: 455 Interpretive Statements SINUS RHYTHM WITH SHORT MD INTERVAL LEFT ATRIAL ENLARGEMENT ANTERIOR ISCHEMIA Electronically Signed On 02-03-2018 13:46:52 EDT by Shane Anaya
--- NOTE | 2018-02-03 20:13 | Pulmonology Progress Note ---
Date of Encounter: 02/03/18 Time of Encounter: 15:00 Assessment and Plan (1) Hilar mass Current Visit: Yes Status: Acute Patient had his EBUS TBNA yesterday .Prelim read is suggestive of malignancy Patient is followed up by oncology he is all set up for staging work up as outpatient. (2) Acute exacerbation of chronic obstructive airways disease Current Visit: Yes Status: Acute To continue Bronchodilators and steroids (3) Acute and chronic respiratory failure with hypoxia Current Visit: Yes Status: Acute To continue O2 supplementation. Subjective Principal diagnosis: Hilar Mass Interval history: Patient doesnt have any new symptoms . Patient is scheduled for EBUS TBNA 02/03 Patient doesnt have any new symptoms , not much cough but no hemoptysis Objective PUL Vital signs: Last Vital Signs Temp 97.6 F 02/03/18 18:20 Pulse 86 02/03/18 18:20 Resp 16 02/03/18 18:20 BP 126/66 02/03/18 18:20 Pulse Ox 95 02/03/18 18:20 Auscultation: bilateral: clear Results - Laboratory Findings CBC and BMP: 02/03/18 05:30 02/03/18 05:30 PT/INR, D-dimer PT 12.8 Seconds (9.4-12.1) H 01/31/18 17:47 D-Dimer 1249 ng/mLFEU (0-500) H 01/31/18 21:24 Abnormal lab findings: Abnormal lab results RBC 4.02 M/mcL (4.19-5.50) L 02/03/18 05:30 Hgb 12.3 g/dL (12.9-16.9) L 02/03/18 05:30 Hct 36.7 % (37.5-50.1) L 02/03/18 05:30 Plt Count 107 K/mcL (140-400) L 02/03/18 05:30 Nucleated RBCs/100 WBC 0.3 /100 WBC (0) H 01/31/18 17:47 PT 12.8 Seconds (9.4-12.1) H 01/31/18 17:47 D-Dimer 1249 ng/mLFEU (0-500) H 01/31/18 21:24 BUN/Creatinine Ratio 31 (6-26) H 02/03/18 05:30 Glucose 113 mg/dL (70-105) H 02/03/18 05:30 Calcium 8.5 mg/dL (8.6-10.3) L 02/03/18 05:30 Phosphorus 2.1 mg/dL (2.7-4.5) L 01/31/18 21:24 Total Bilirubin 1.4 mg/dL (0.3-1.0) H 01/31/18 17:47 Direct Bilirubin 0.4 mg/dL (0.0-0.2) H 01/31/18 17:47 AST 42 Units/L (13-39) H 01/31/18 17:47 C-Reactive Protein 152 mg/L (Less than 10) H 01/31/18 17:47 B-Natriuretic Peptide 170 pg/mL (Less than 100) H 01/31/18 17:47 - Clinical Findings Intake & Output: Intake & Output 02/03/18 02/03/18 02/03/18 07:59 15:59 23:59 Intake Total 240 / 240 Output Total 300 / 300 Balance -300 / -300 240 / 240 Weight 66.7 kg Consult Discharge Plan - Plan Referrals: Melquiades Roberts MD [Partnered Physician] - 02/15/18 2:45 pm
[2018-02-03] MEDS: Latanoprost 2.5 ML BOTTLE BOTH EYES SCH (20:51)
[2018-02-04] MEDS: *HR* HYDROcodone/Acet 5/325 mg TABLET PO PRN (03:27)
[2018-02-04] MEDS: Ipratropium/Albuterol Neb 3 ML IH SCH ×3 (03:47→11:34)
[2018-02-04] MEDS: *HR* Heparin 5,000 UNIT/ML VIAL SQ SCH (05:12)
[2018-02-04] MEDS ORDERED: Regadenoson 0.4 MG/5 ML SYRINGE IVP ONE (06:31)
[2018-02-04 06:53] LABS: BUN/Creatinine Ratio 24 (6-26); Blood Urea Nitrogen 17 mg/dL (8-23); Calcium 8.3 mg/dL (8.6-10.3); Carbon Dioxide 32 mEq/L (23-29); Chloride 101 mEq/L (98-107); Glucose 91 mg/dL (70-105); Osmolality,Calculated 291 (280-300); Potassium 3.2 mEq/L (3.5-5.1); Sodium 140 mEq/L (136-145); eGFR For African Americans > 60 (> 60); eGFR For Non-African Americans > 60 (> 60)
[2018-02-04 06:56] LABS: Hemoglobin 12.5 g/dL (12.9-16.9); Mean Corpuscular Volume 91.4 fL (83.0-100.0)
[2018-02-04 06:58] LABS: Hematocrit 37.1 % (37.5-50.1); Immature Platelets 6.2 % (1.1-6.1); Mean Corpuscular HGB Conc 33.7 g/dL (31.6-35.5); Mean Corpuscular Hemoglobin 30.8 pg (28.0-33.3); Mean Platelet Volume 10.7 fL (9.4-12.4); Red Blood Count 4.06 M/mcL (4.19-5.50)
[2018-02-04] MEDS ORDERED: predniSONE 20 MG TABLET PO SCH (09:00)
[2018-02-04] MEDS: Aspirin 81 MG TAB.CHEW PO SCH (09:54)
[2018-02-04] MEDS: Levofloxacin 750 MG/150 ML 750 MG/150 ML BAG IVPB SCH (09:55)
[2018-02-04] MEDS: Metoprolol XL (24 HR) Succ 50 MG TAB.ER.24H PO SCH (09:55)
--- NOTE | 2018-02-04 09:56 | Pulmonology Progress Note ---
Date of Encounter: 02/04/18 Time of Encounter: 09:00 Assessment and Plan (1) Hilar mass Current Visit: Yes Status: Acute Patient had his EBUS TBNA yesterday .Prelim read is suggestive of malignancy Patient is followed up by oncology he is all set up for staging work up as outpatient. (2) Acute exacerbation of chronic obstructive airways disease Current Visit: Yes Status: Acute To continue Bronchodilators and steroids . On discharge send him home on the bronchodilator regimen will finish a 5 day course of Doxycyline and 14 day steroid taper 40 x 3 , 20 x 4 days , 10 mg x 7 days then stop. (3) Acute and chronic respiratory failure with hypoxia Current Visit: Yes Status: Acute To continue O2 supplementation.. To ascertain home O2 needs before discharge. Subjective Principal diagnosis: Hilar Mass Interval history: Patient doesnt have any new symptoms . Patient is scheduled for EBUS TBNA 02/03 Patient doesnt have any new symptoms , not much cough but no hemoptysis 02/04 Patient had Stress test today , denies any symptoms . Objective PUL Vital signs: Last Vital Signs Temp 97.8 F 02/04/18 02:52 Pulse 85 02/04/18 02:52 Resp 16 02/04/18 03:47 BP 157/81 02/04/18 02:52 Pulse Ox 98 02/04/18 03:47 Auscultation: bilateral: diminished breath sounds Results - Laboratory Findings CBC and BMP: 02/04/18 06:01 02/04/18 06:01 PT/INR, D-dimer PT 12.8 Seconds (9.4-12.1) H 01/31/18 17:47 D-Dimer 1249 ng/mLFEU (0-500) H 01/31/18 21:24 Abnormal lab findings: Abnormal lab results RBC 4.06 M/mcL (4.19-5.50) L 02/04/18 06:01 Hgb 12.5 g/dL (12.9-16.9) L 02/04/18 06:01 Hct 37.1 % (37.5-50.1) L 02/04/18 06:01 Plt Count 97 K/mcL (140-400) L 02/04/18 06:01 Nucleated RBCs/100 WBC 0.3 /100 WBC (0) H 01/31/18 17:47 Immature Plt Fraction 6.2 % (1.1-6.1) H 02/04/18 06:01 PT 12.8 Seconds (9.4-12.1) H 01/31/18 17:47 D-Dimer 1249 ng/mLFEU (0-500) H 01/31/18 21:24 Potassium 3.2 mEq/L (3.5-5.1) L 02/04/18 06:01 Carbon Dioxide 32 mEq/L (23-29) H 02/04/18 06:01 Calcium 8.3 mg/dL (8.6-10.3) L 02/04/18 06:01 Phosphorus 2.1 mg/dL (2.7-4.5) L 01/31/18 21:24 Total Bilirubin 1.4 mg/dL (0.3-1.0) H 01/31/18 17:47 Direct Bilirubin 0.4 mg/dL (0.0-0.2) H 01/31/18 17:47 AST 42 Units/L (13-39) H 01/31/18 17:47 C-Reactive Protein 152 mg/L (Less than 10) H 01/31/18 17:47 B-Natriuretic Peptide 170 pg/mL (Less than 100) H 01/31/18 17:47 - Clinical Findings Intake & Output: Intake & Output 02/03/18 02/04/18 02/04/18 23:59 07:59 15:59 Intake Total 220 / 220 Balance 220 / 220 Weight 63 kg Consult Discharge Plan - Plan Referrals: Melquiades Roberts MD [Partnered Physician] - 02/15/18 2:45 pm
[2018-02-04 11:27] VITALS: BP 147/77
[2018-02-04] MEDS: Budesonide/Formoterol 80/4.5 MDI IH SCH (11:34)
--- NOTE | 2018-02-04 13:01 | Discharge Summary ---
- NOTES TO OUTPATIENT PROVIDER Notes to Outpatient Provider: Recommend repeat CMP and BP recheck within one week Orders not resulted at time of discharge: Pending orders 02/02/18 17:32 Cell Count w Diff, Body Fluid [BF] Routine Culture,Respiratory [RM] Routine 02/02/18 17:33 Gram Stain [RM] Routine Cytology [PTH] Routine 02/04/18 07:00 NM ramirez perf SPECT multi [NM] Routine 02/05/18 04:00 BMP [Basic Metabolic Panel] AM 0400 Complete Blood Count w/o Diff [HEME] AM 0400 02/06/18 04:00 BMP [Basic Metabolic Panel] AM 0400 Complete Blood Count w/o Diff [HEME] AM 0400 Date of Encounter: 02/04/18 Time of Encounter: 12:57 - Discharge Diagnosis (1) Acute exacerbation of chronic obstructive airways disease Priority: Primary Status: Acute Assessment and Plan: known history of COPD; former smoker. Symptomatic with shortness of breath and wheezing. CXR nonacute. Chest CTA negative for pulmonary embolism but did show new perihilar mass. Treated with IV Levaquin, steroids and bronchodilators with improvement in symptoms. Discharge home on doxycycline and steroid taper per pulmonology recommendations (2) Hilar mass Priority: Primary Status: Acute Assessment and Plan: chest CTA left hilar mass with invasion of the left lower lobe airway and secondary collapse and consolidation of the left lower lobe concerning for primary lung carcinoma. S/p bronchoscopy 02/02/18; path pending. Pulmonology and oncology followed. Follow-up with oncology outpatient for PET scan and head CT. (3) Status post aortic valve replacement Priority: Secondary Status: Chronic Assessment and Plan: TTE with bioprosthetic aortic valve grossly appears well seated. Leaflets not well visualized. 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 Mean gradient 28 mmHg. (4) Abnormal EKG Priority: Primary Status: Acute Assessment and Plan: ED EKG with ST depression; denies chest pain. serial troponin 0.04, 0.05, 0.03. No known CAD. No previous ischemic evaluation. 02/01/2018 TTE with EF 70%, mild diastolic dysfunction and hyper kinetic wall motion abnormalities. 02/04/18 stress test negative for ischemia or infarct. No further cardiac workup indicated at this time. Continue home ASA, statin. (5) Hypokalemia Priority: Primary Status: Acute Assessment and Plan: replaced as needed. Repeat CMP with PCP within one week (6) Essential hypertension Priority: Primary Status: Acute Assessment and Plan: per hx. BP variable; home BB increased with improvement in BP. Recommend follow -up with PCP within one week for BP recheck Hospital course: Mr. Baker is a 72 year old male Discharge discussed with: patient (Seen and examined at bedside. Says he feels much better would like to go home today if possible. No further chest pain, has a dry nonproductive cough. Denies shortness of breath. He is aware of outpatient oncology follow-up) - Time Spent with Patient Total time spent providing and/or coordinating discharge services: - Discharge Medications Prescriptions: Doxycycline 100 mg PO BID 5 Days #10 capsule predniSONE [PredniSONE] 10 mg PO DAILY #27 tablet Home Medications: Aspirin 81 mg PO DAILY 09/02/16 [History] Atorvastatin [Lipitor] 40 mg PO DAILY 09/02/16 [History] Metoprolol XL (24 HR) Succ [Toprol Xl] 25 mg PO DAILY 09/02/16 [History] Albuterol Sulfate [Ventolin Hfa] 2 puff IH Q4-6H PRN 01/31/18 [History] Fluticasone/Salmeterol [Advair 250-50 Diskus] 1 puff IH BID 01/31/18 [History] Latanoprost [Xalatan] 1 drop OP HS 01/31/18 [History] predniSONE [PredniSONE] See Taper PO DAILY 01/31/18 [History] Doxycycline 100 mg PO BID 5 Days #10 capsule 02/04/18 [Rx] predniSONE [PredniSONE] 10 mg PO DAILY #27 tablet 02/04/18 [Rx] Allergies/Adverse Reactions: 3 Allergy/AdvReac Type Severity Reaction Status Date / Time No Known Allergies Allergy Verified 09/02/16 09:28 Date of admission: 01/31/18 20:34 Primary care physician: Raheem Hubbard MD Consults: 02/01/18 00:52 Consult to Pulmonology [CONS] Routine Consulting Provider: [facility] [place] Reason for Consult: lung mass/lung collapse Call Completed: No 02/01/18 09:49 Consult to Oncology [CONS] Routine Consulting Provider: Oncology [facility] Reason for Consult: new lung mass Call Completed: Yes Discharging clinician: Senait Lemos Anticipated date of discharge: 02/04/18 - Constitutional Vitals: Temp Pulse Resp BP Pulse Ox 97.8 F 78 16 147/77 89 02/04/18 11:26 02/04/18 11:26 02/04/18 11:34 02/04/18 11:26 02/04/18 11:34 General appearance: Present: cooperative, A&O X 3, pleasant, answers questions appropriately - Head Head exam: Present: atraumatic, normocephalic - Eye Eye exam: Present: PERRL, conjuntiva pink, sclera anicteric Pupils: Present: PERRL - Neck Neck exam general surgery: Present: supple, trachea midline. Absent: lymphadenopathy - Respiratory Respiratory exam: Present: CTAB. Absent: accessory muscle use, rales, rhonchi, wheezes - Cardiovascular Cardiovascular exam: Present: RRR, +S1, +S2. Absent: diastolic murmur, gallop, rubs, systolic murmur - GI/Abdominal GI/Abdominal exam: Present: normal bowel sounds, soft, no peritoneal signs. Absent: distended, tenderness - Extremities Exam Extremities exam: Present: warm, radial pulses palpable and symmetrical. Absent : calf tenderness, cyanotic, pedal edema - Neurological Exam Neurological exam: Present: CN II-XII intact, oriented X3, no focal deficits. Absent: pronater drift, facial droop, speech deficit - Skin Skin exam: Present: dry, intact - Patient Status Disposition: Home, Self-Care Condition: Good Functional capacity at discharge: independent ambulation Overall status at discharge: patient is back to baseline - Ambulatory Orders Ambulatory Orders: PET CT skull to thigh DX/initi [PE] Time Frame: 02/08/18, Facility: [facility], Location: Radiology MR head/brain wo/w con [MR] Time Frame: 02/06/18, Facility: [facility], Location: Radiology - Discharge Instructions Instructions: Chronic Obstructive Pulmonary Disease (DC), Doxycycline (By mouth ), Prednisone (By mouth) Follow Up With: Melquiades Roberts MD [Partnered Physician] - 02/15/18 2:45 pm - Diet and Activity Activity: increase activity as tolerated Diet: advance to your usual diet
[2018-02-04 14:11] LABS: Source of Body Fluid LUL BAL
[2018-02-04 15:02] LABS: Appearance of Body Fluid Cloudy (Clear); Volume of Body Fluid 10 mL
--- NOTE | 2018-02-05 08:36 | Event Note ---
Date of Encounter: 02/04/18 Time of Encounter: 17:00 This is a late entry for 02/04/2018 discharge summary (unable to edit original discharge summary) Acute hypoxic respiratory failure: New diagnosis. Secondary to COPD and likely lung cancer. Unable to be weaned from supplemental oxygen. Oxygen saturations 85% on room air. Qualified for home oxygen which was set up prior to discharge.
== END 2018-02-04 16:05 | disposition home or self-care (01) | DRG 166 ==
LOC: 3BNU 16:51 → EMEROO 16:51 → 3BNU 21:25
PROVIDERS: ADMIT Internal Medicine; ATTEND Internal Medicine

== ENCOUNTER 2018-03-05 11:43 | Inpatient (IN) ==
--- NOTE | 2018-03-05 11:49 | Emergency Department Note ---
Disposition Clinical Impression: Acute respiratory failure, Lung cancer, Elevated troponin I level Disposition: Admitted As Inpatient Condition: Critical General Adult HPI - General Stated complaint: FARIBA Time Seen by Provider: 03/05/18 11:46 - Related Data Home Medications Medication Instructions Recorded Confirmed Aspirin 81 mg PO DAILY 09/02/16 03/05/18 Atorvastatin [Lipitor] 40 mg PO DAILY 09/02/16 03/05/18 Metoprolol XL (24 HR) Succ [Toprol 25 mg PO DAILY 09/02/16 03/05/18 Xl] Albuterol Sulfate [Ventolin Hfa] 2 puff IH Q4-6H PRN 01/31/18 03/05/18 Fluticasone/Salmeterol [Advair 1 puff IH BID 01/31/18 03/05/18 250-50 Diskus] Latanoprost [Xalatan] 1 drop OP HS 01/31/18 03/05/18 Guaifenesin [Mucinex] 600 mg PO BID 02/17/18 03/05/18 Naproxen Sodium [Aleve] 220 mg PO BID PRN 02/22/18 03/05/18 Previous Rx's Medication Instructions Recorded Loperamide [Imodium] 2 mg PO AD PRN #30 capsule 02/21/18 Magic Mouthwash 5 ml PO Q4H PRN #240 ml 02/21/18 Ondansetron ODT [Zofran ODT] 4 mg SL Q6HR #20 tab.rapdis 02/21/18 Allopurinol [Zyloprim 300 MG] 300 mg PO DAILY #30 tablet 02/23/18 Dexamethasone [Decadron] 4 mg PO BID #30 tab 02/23/18 Lidocaine/Prilocaine CREAM [Emla] 1 gm TP ONCE #1 tube 02/23/18 Prochlorperazine Maleate 10 mg PO Q8HR PRN #90 tablet 02/23/18 [Compazine] Potassium Chloride [K-Tab ER] 10 meq PO DAILY #30 tablet.er 03/02/18 Allergies Allergy/AdvReac Type Severity Reaction Status Date / Time No Known Allergies Allergy Verified 03/05/18 14:46 Past Medical History - Past Medical History Medical history: Reports: cancer, COPD, hyperlipidemia, valvular heart disease Surgical history: Reports: carotid endarterectomy, heart valve replacement Psychiatric history: Reports: no psych history - Social History Smoking Status: Former smoker Smokeless Tobacco Status: No Alcohol use: Reports: none Drug use: Reports: none Course Vital Signs Temperature 97.7 F 03/05/18 11:46 Pulse Rate 126 03/05/18 11:46 Respiratory Rate 26 03/05/18 11:46 Blood Pressure 115/51 03/05/18 11:46 O2 Sat by Pulse Oximetry 96 03/05/18 11:46 Temperature 97.7 F 03/05/18 11:46 Pulse Rate 111 03/05/18 17:19 Respiratory Rate 18 03/05/18 17:19 Blood Pressure 89/65 03/05/18 17:19 O2 Sat by Pulse Oximetry 99 03/05/18 17:19 Oxygen Delivery Oxygen Delivery Non Rebreather Mask Medical Decision Making - Lab Data Result diagrams: 03/05/18 12:24 03/05/18 12:24 Lab Results 03/05/18 03/05/18 03/05/18 Range/Units 12:00 12:24 12:24 WBC 8.9 (4.3-11.1) K/mcL RBC 2.50 L (4.19-5.50) M/mcL Hgb 8.1 L D (12.9-16.9) g/dL Hct 24.0 L (37.5-50.1) % MCV 96.0 (83.0-100.0) fL MCH 32.4 (28.0-33.3) pg MCHC 33.8 (31.6-35.5) g/dL RDW 16.1 H (11.5-14.5) % Plt Count 30 L* (140-400) K/mcL MPV 11.8 (9.4-12.4) fL Immature Gran % 3.8 (0-4) % Seg Neutrophils % 72.6 % Lymphocytes % 19.0 % Monocytes % 4.3 % Eosinophils % 0.0 % Basophils % 0.3 % Neutrophils # 6.5 (1.6-8.9) K/mcL Lymphocytes # 1.7 (0.6-4.6) K/mcL Monocytes # 0.4 (0.0-1.3) K/mcL Eosinophils # 0.0 (0.0-0.6) K/mcL Basophils # 0.0 (0.0-0.2) K/mcL Nucleated RBCs/100 WBC 3.3 H (0) /100 WBC Immature Plt Fraction 4.8 (1.1-6.1) % PT 12.9 H (9.4-12.1) Seconds INR 1.2 Sample Site ABG pH (7.32-7.45) pH Units ABG pCO2 (35-45) mmHg ABG pO2 (85-104) mmHg ABG HCO3 (21-27) mEq/L ABG Total CO2 (20-26) mEq/L ABG O2 Saturation (95-98) % ABG Base Excess (-2 to 3) mEq/L O2 Delivery Device Inspired O2 (1-15=lpm [id number]=%) Sodium (136-145) mEq/L Potassium (3.5-5.1) mEq/L Chloride (98-107) mEq/L Carbon Dioxide (23-29) mEq/L BUN (8-23) mg/dL Creatinine (0.70-1.30) mg/dL Est GFR ( Amer) (> 60) Est GFR (Non-Af Amer) (> 60) BUN/Creatinine Ratio (6-26) Glucose (70-105) mg/dL Calculated Osmolality (280-300) Lactic Acid (0.5-2.2) mmol/L Calcium (8.6-10.3) mg/dL Magnesium (1.6-2.6) mg/dL Total Bilirubin (0.3-1.0) mg/dL AST (13-39) Units/L ALT (7-52) Units/L Alkaline Phosphatase (34-104) Units/L Troponin I (< 0.04) ng/mL B-Natriuretic Peptide (Less than 100) pg/mL Serum Total Protein (6.4-8.9) g/dL Albumin (3.5-5.7) g/dL Globulin (2.4-3.5) g/dL Albumin/Globulin Ratio (1.1-2.2) Urine Color [place] A (Yellow) Urine Clarity Clear (Clear) Urine pH 5.5 (5.0-8.0) pH Units Ur Specific [place] 1.023 (1.010-1.025) Urine Protein 30 H (Neg-Trace) mg/dL Urine Glucose (UA) Normal (Normal) mg/dL Urine Ketones Trace H (Negative) mg/dL Urine Blood Negative (Negative) Urine Nitrite Negative (Negative) Urine Bilirubin Small H (Negative) Urine Urobilinogen 2.0 H (Normal) mg/dL Ur Leukocyte Esterase Small H (Negative) Urine Microscopic RBC 3-5 H (0-3) per hpf Urine Microscopic WBC 5-15 H (0-3) per hpf Ur Squamous Epith Cells Many H (None-Few) per lpf Urine Bacteria None Seen (None-Few) per hpf Hyaline Casts Few (None-Few) per lpf 03/05/18 03/05/18 03/05/18 Range/Units 12:24 12:24 12:24 WBC (4.3-11.1) K/mcL RBC (4.19-5.50) M/mcL Hgb (12.9-16.9) g/dL Hct (37.5-50.1) % MCV (83.0-100.0) fL MCH (28.0-33.3) pg MCHC (31.6-35.5) g/dL RDW (11.5-14.5) % Plt Count (140-400) K/mcL MPV (9.4-12.4) fL Immature Gran % (0-4) % Seg Neutrophils % % Lymphocytes % % Monocytes % % Eosinophils % % Basophils % % Neutrophils # (1.6-8.9) K/mcL Lymphocytes # (0.6-4.6) K/mcL Monocytes # (0.0-1.3) K/mcL Eosinophils # (0.0-0.6) K/mcL Basophils # (0.0-0.2) K/mcL Nucleated RBCs/100 WBC (0) /100 WBC Immature Plt Fraction (1.1-6.1) % PT (9.4-12.1) Seconds INR Sample Site ABG pH (7.32-7.45) pH Units ABG pCO2 (35-45) mmHg ABG pO2 (85-104) mmHg ABG HCO3 (21-27) mEq/L ABG Total CO2 (20-26) mEq/L ABG O2 Saturation (95-98) % ABG Base Excess (-2 to 3) mEq/L O2 Delivery Device Inspired O2 (1-15=lpm [id number]=%) Sodium 147 H (136-145) mEq/L Potassium 3.3 L (3.5-5.1) mEq/L Chloride 103 (98-107) mEq/L Carbon Dioxide 29 (23-29) mEq/L BUN 40 H (8-23) mg/dL Creatinine 0.78 (0.70-1.30) mg/dL Est GFR ( Amer) > 60 (> 60) Est GFR (Non-Af Amer) > 60 (> 60) BUN/Creatinine Ratio 51 H (6-26) Glucose 119 H (70-105) mg/dL Calculated Osmolality 315 H (280-300) Lactic Acid 3.2 H (0.5-2.2) mmol/L Calcium 8.9 (8.6-10.3) mg/dL Magnesium 2.4 (1.6-2.6) mg/dL Total Bilirubin 4.7 H (0.3-1.0) mg/dL AST 158 H (13-39) Units/L ALT 71 H (7-52) Units/L Alkaline Phosphatase 179 H (34-104) Units/L Troponin I 0.05 H* (< 0.04) ng/mL B-Natriuretic Peptide 199 H (Less than 100) pg/mL Serum Total Protein 6.2 L (6.4-8.9) g/dL Albumin 3.3 L (3.5-5.7) g/dL Globulin 2.9 (2.4-3.5) g/dL Albumin/Globulin Ratio 1.1 (1.1-2.2) Urine Color (Yellow) Urine Clarity (Clear) Urine pH (5.0-8.0) pH Units Ur Specific [place] (1.010-1.025) Urine Protein (Neg-Trace) mg/dL Urine Glucose (UA) (Normal) mg/dL Urine Ketones (Negative) mg/dL Urine Blood (Negative) Urine Nitrite (Negative) Urine Bilirubin (Negative) Urine Urobilinogen (Normal) mg/dL Ur Leukocyte Esterase (Negative) Urine Microscopic RBC (0-3) per hpf Urine Microscopic WBC (0-3) per hpf Ur Squamous Epith Cells (None-Few) per lpf Urine Bacteria (None-Few) per hpf Hyaline Casts (None-Few) per lpf 03/05/18 03/05/18 Range/Units 12:29 16:55 WBC (4.3-11.1) K/mcL RBC (4.19-5.50) M/mcL Hgb (12.9-16.9) g/dL Hct (37.5-50.1) % MCV (83.0-100.0) fL MCH (28.0-33.3) pg MCHC (31.6-35.5) g/dL RDW (11.5-14.5) % Plt Count (140-400) K/mcL MPV (9.4-12.4) fL Immature Gran % (0-4) % Seg Neutrophils % % Lymphocytes % % Monocytes % % Eosinophils % % Basophils % % Neutrophils # (1.6-8.9) K/mcL Lymphocytes # (0.6-4.6) K/mcL Monocytes # (0.0-1.3) K/mcL Eosinophils # (0.0-0.6) K/mcL Basophils # (0.0-0.2) K/mcL Nucleated RBCs/100 WBC (0) /100 WBC Immature Plt Fraction (1.1-6.1) % PT (9.4-12.1) Seconds INR Sample Site R Brach ABG pH 7.55 H (7.32-7.45) pH Units ABG pCO2 39 (35-45) mmHg ABG pO2 114 H (85-104) mmHg ABG HCO3 34 H (21-27) mEq/L ABG Total CO2 35 H (20-26) mEq/L ABG O2 Saturation 99 H (95-98) % ABG Base Excess 11 H (-2 to 3) mEq/L O2 Delivery Device [place]B Inspired O2 100.0 (1-15=lpm [id number]=%) Sodium (136-145) mEq/L Potassium (3.5-5.1) mEq/L Chloride (98-107) mEq/L Carbon Dioxide (23-29) mEq/L BUN (8-23) mg/dL Creatinine (0.70-1.30) mg/dL Est GFR ( Amer) (> 60) Est GFR (Non-Af Amer) (> 60) BUN/Creatinine Ratio (6-26) Glucose (70-105) mg/dL Calculated Osmolality (280-300) Lactic Acid 6.0 H* (0.5-2.2) mmol/L Calcium (8.6-10.3) mg/dL Magnesium (1.6-2.6) mg/dL Total Bilirubin (0.3-1.0) mg/dL AST (13-39) Units/L ALT (7-52) Units/L Alkaline Phosphatase (34-104) Units/L Troponin I (< 0.04) ng/mL B-Natriuretic Peptide (Less than 100) pg/mL Serum Total Protein (6.4-8.9) g/dL Albumin (3.5-5.7) g/dL Globulin (2.4-3.5) g/dL Albumin/Globulin Ratio (1.1-2.2) Urine Color (Yellow) Urine Clarity (Clear) Urine pH (5.0-8.0) pH Units Ur Specific [place] (1.010-1.025) Urine Protein (Neg-Trace) mg/dL Urine Glucose (UA) (Normal) mg/dL Urine Ketones (Negative) mg/dL Urine Blood (Negative) Urine Nitrite (Negative) Urine Bilirubin (Negative) Urine Urobilinogen (Normal) mg/dL Ur Leukocyte Esterase (Negative) Urine Microscopic RBC (0-3) per hpf Urine Microscopic WBC (0-3) per hpf Ur Squamous Epith Cells (None-Few) per lpf Urine Bacteria (None-Few) per hpf Hyaline Casts (None-Few) per lpf Critical Care Time Critical Care Time: Yes Total Critical Care Time: 30 Attestation: The high probability of a clinically significant, sudden or life threatening deterioration of the [] system(s) required my full and direct attention, intervention and personal management. The aggregate critical care time was [] minutes. This time is in addition to time spent performing reported procedures but includes the following: [] Data Review and interpretation [] Patient assessment and monitoring of vital signs [] Documentation [] Medication orders and management Attestation Statement - Attestation Attestation: I examined this patient and my medical decision-making was reviewed with the Resident Physician. I agree with the documented findings, disposition and treatment plan as described except to the extent set forth below. [id number] time provided Patient arrives by EMS from home. History obtained from his sister who has traveled here from [place] to [facility]. The patient has been generally weak with a decreased ability to walk. Oral intake decreased. He has a known history of metastatic cancer not currently undergoing any kind of chemotherapy. The patient appears weak and frail on exam 12:41: The patient has complete opacification of his left lung. His last thoracentesis was 2 weeks ago and was complicated by pneumothorax. I feel the procedure is indicated today given his tachypnea, increased work of breathing, and subjective symptoms 13:20: Lateral approach thoracentesis performed by the resident physician under my supervision. 13:40: The patient had an episode of desaturation and then bradypnea. He became hypotensive. The alert team was summoned. The patient's sister Corina Ojeda who was given verbal permission from the patient to be the surrogate decision maker has decided that she did not want us to pursue any life-saving measures including endotracheal intubation. She understands that the patient's condition is critical and he could without intubation. She states she "did not want him to suffer"
[2018-03-05] MEDS ORDERED: Ipratropium/Albuterol Neb 3 ML IH ONE (11:57)
[2018-03-05 12:21] LABS: Bilirubin,Urine Small (Negative); Blood,Urine Negative (Negative); Clarity,Urine Clear (Clear); Color,Urine Orange (Yellow); Glucose,Urine (UA) Normal (Normal); Ketones,Urine Trace mg/dL (Negative); Leukocyte Esterase,Urine Small (Negative); Nitrite,Urine Negative (Negative); PH,Urine 5.5 pH Units (5.0-8.0); Protein,Urine 30 mg/dL (Neg-Trace); Specific Gravity,Urine 1.023 (1.010-1.025)
--- NOTE | 2018-03-05 12:24 | Emergency Department Note ---
Disposition Clinical Impression: Elevated troponin I level Acute respiratory failure Qualifiers: Respiratory failure complication: hypoxia Qualified Code(s): J96.01 - Acute respiratory failure with hypoxia Lung cancer Qualifiers: Laterality: left Lung location: hilum of lung Qualified Code(s): C34.02 - Malignant neoplasm of left main bronchus Disposition: Admitted As Inpatient Condition: Critical Referrals: Raheem Hubbard MD [Primary Care Provider] - Forms: ED Satisfaction Letter Time of Disposition: 14:33 SOB HPI - General Chief Complaint: ED Shortness of Breath/Dyspnea Stated Complaint: FARIBA Time Seen by Provider: 03/05/18 11:46 Source: EMS Limitations: physical limitation Nursing Notes Reviewed: Yes Vital Signs Reviewed: Yes - History of Present Illness Patient is a 72-year-old male who presents to [facility] ED with a chief complaint of difficulty breathing. States he has a history of lung cancer with metastasis. He is present with his sister who he would like to be his power of sport intern. Patient currently having conversational dyspnea. States the shortness of breath has worsened over the last couple weeks. He recently had his lung drained of fluid. States his gradually gotten more short of breath since then. Pt Subjective Complaint: shortness of breath Onset (ago): week(s) Severity: moderate Consistency/Duration: gradually worsening Improves with: nothing Worsens with: lying flat Known history of: COPD Associated symptoms: Reports: chest pain (with coughing) Treatment prior to arrival: oxygen Cough present: No - Related Data Home Medications Medication Instructions Recorded Confirmed Aspirin 81 mg PO DAILY 09/02/16 03/01/18 Atorvastatin [Lipitor] 40 mg PO DAILY 09/02/16 03/01/18 Metoprolol XL (24 HR) Succ [Toprol 25 mg PO DAILY 09/02/16 03/01/18 Xl] Albuterol Sulfate [Ventolin Hfa] 2 puff IH Q4-6H PRN 01/31/18 03/01/18 Fluticasone/Salmeterol [Advair 1 puff IH BID 01/31/18 03/01/18 250-50 Diskus] Latanoprost [Xalatan] 1 drop OP HS 01/31/18 03/01/18 Guaifenesin [Mucinex] 600 mg PO BID 02/17/18 03/01/18 Naproxen Sodium [Aleve] 220 mg PO BID PRN 02/22/18 03/01/18 Previous Rx's Medication Instructions Recorded Loperamide [Imodium] 2 mg PO AD PRN #30 capsule 02/21/18 Magic Mouthwash 5 ml PO Q4H PRN #240 ml 02/21/18 Ondansetron ODT [Zofran ODT] 4 mg SL Q6HR #20 tab.rapdis 02/21/18 Allopurinol [Zyloprim 300 MG] 300 mg PO DAILY #30 tablet 02/23/18 Dexamethasone [Decadron] 4 mg PO BID #30 tab 02/23/18 Lidocaine/Prilocaine CREAM [Emla] 1 gm TP ONCE #1 tube 02/23/18 Prochlorperazine Maleate 10 mg PO Q8HR PRN #90 tablet 02/23/18 [Compazine] Prochlorperazine Maleate 10 mg PO Q8HR PRN #90 tablet 02/23/18 [Compazine] Potassium Chloride [K-Tab ER] 10 meq PO DAILY #30 tablet.er 03/02/18 Allergies Allergy/AdvReac Type Severity Reaction Status Date / Time No Known Allergies Allergy Verified 03/05/18 11:45 All systems ED: reviewed and negative except as stated. Past Medical History - Past Medical History Attestation: Yes The following information was validated with the patient. Source: patient Medical history: Reports: cancer, COPD, hyperlipidemia, valvular heart disease Surgical history: Reports: carotid endarterectomy, heart valve replacement Psychiatric history: Reports: no psych history - Social History Smoking Status: Former smoker Smokeless Tobacco Status: No Alcohol use: Reports: none Drug use: Reports: none Physical Exam - General Limitations: physical limitation General appearance: anxious, in distress, cachectic - Head Head exam: atraumatic, normocephalic, normal inspection - Eye Eye exam: Present: normal appearance, PERRL, EOMI - ENT ENT exam: normal exam, normal oropharynx, mucous membranes moist - Neck Neck exam: Present: normal inspection, full ROM, trachea midline - Chest Chest inspection: Present: normal inspection, symmetric chest wall rise - Respiratory Respiratory exam: Present: other (diffuse rhonchi L>R) - Cardiovascular Cardiovascular exam: Present: normal rhythm, tachycardia - Abdominal Exam Abdominal exam: Present: soft, Non-Tender. Absent: tenderness, distention, guarding, rebound, rigidity - Extremities Exam Extremities exam: Present: normal inspection, full ROM. Absent: tenderness, pedal edema - Neurological Exam Neurological exam: Present: alert, oriented X3 - Psychiatric Psychiatric exam: Present: normal affect, normal mood - Skin Skin exam: Present: warm, dry, intact, normal color Course Course Narrative: Patient seen and examined. Difficulty breathing with history of cancer and pleural effusions. Cardiopulmonary workup initiated. Chest x-ray showed white out of the left lung. Suspect pleural effusion needs to be drained again. Since he is tachycardic and very short of breath, we will go ahead and do a thoracentesis at the bedside in the emergency department. - Reevaluation(s) Reevaluation #1: Thoracentesis was completed on the left chest fourth intercostal space. States was sterilely prepped and draped and is marked with bedside ultrasound showing fluid underneath. 1.5 L of bloody fluid was removed. Patient initially had improvement of symptoms and then started complaining of more chest pain and shortness of breath. Repeat stat chest x-ray showed continued white out of the left lung with some mediastinal shift to the left. The right lung is hyper aerated. Lung catheter was clamped off but left in place. Labwork shows a mildly elevated troponin of 0.05. Patient started having more agonal respirations and his O2 saturation dropped to 80%. We discussed with the sister who he had appointed as his medical decision maker prior to the procedure. She states she does not want any further interventions including intubation or chest compressions. We will support his respirations with oxygen and provide some Ativan to help with his dyspnea as well as morphine to help with his pain. We will admit for palliative care. I discussed with the hospitalist who has accepted patient for admission. Time: 14:34 Vital Signs Temperature 97.7 F 03/05/18 11:46 Pulse Rate 126 03/05/18 11:46 Respiratory Rate 26 03/05/18 11:46 Blood Pressure 115/51 03/05/18 11:46 O2 Sat by Pulse Oximetry 96 03/05/18 11:46 Temperature 97.7 F 03/05/18 11:46 Pulse Rate 130 03/05/18 13:50 Respiratory Rate 21 03/05/18 13:50 Blood Pressure 67/35 03/05/18 13:50 O2 Sat by Pulse Oximetry 86 03/05/18 13:50 Oxygen Delivery Oxygen Delivery Non Rebreather Mask Shortness of Breath/Dyspnea - Medical Records Medical records reviewed: Yes I reviewed the patient's medical records. - Lab Data Lab results reviewed: Yes I reviewed the patient's lab results. Result diagrams: 03/05/18 12:24 03/05/18 12:24 Lab Results 03/05/18 03/05/18 03/05/18 Range/Units 12:00 12:24 12:24 WBC 8.9 (4.3-11.1) K/mcL RBC 2.50 L (4.19-5.50) M/mcL Hgb 8.1 L D (12.9-16.9) g/dL Hct 24.0 L (37.5-50.1) % MCV 96.0 (83.0-100.0) fL MCH 32.4 (28.0-33.3) pg MCHC 33.8 (31.6-35.5) g/dL RDW 16.1 H (11.5-14.5) % Plt Count 30 L* (140-400) K/mcL MPV 11.8 (9.4-12.4) fL Immature Gran % 3.8 (0-4) % Seg Neutrophils % 72.6 % Lymphocytes % 19.0 % Monocytes % 4.3 % Eosinophils % 0.0 % Basophils % 0.3 % Neutrophils # 6.5 (1.6-8.9) K/mcL Lymphocytes # 1.7 (0.6-4.6) K/mcL Monocytes # 0.4 (0.0-1.3) K/mcL Eosinophils # 0.0 (0.0-0.6) K/mcL Basophils # 0.0 (0.0-0.2) K/mcL Nucleated RBCs/100 WBC 3.3 H (0) /100 WBC Immature Plt Fraction 4.8 (1.1-6.1) % PT 12.9 H (9.4-12.1) Seconds INR 1.2 Sample Site ABG pH (7.32-7.45) pH Units ABG pCO2 (35-45) mmHg ABG pO2 (85-104) mmHg ABG HCO3 (21-27) mEq/L ABG Total CO2 (20-26) mEq/L ABG O2 Saturation (95-98) % ABG Base Excess (-2 to 3) mEq/L O2 Delivery Device Inspired O2 (1-15=lpm [id number]=%) Sodium (136-145) mEq/L Potassium (3.5-5.1) mEq/L Chloride (98-107) mEq/L Carbon Dioxide (23-29) mEq/L BUN (8-23) mg/dL Creatinine (0.70-1.30) mg/dL Est GFR ( Amer) (> 60) Est GFR (Non-Af Amer) (> 60) BUN/Creatinine Ratio (6-26) Glucose (70-105) mg/dL Calculated Osmolality (280-300) Lactic Acid (0.5-2.2) mmol/L Calcium (8.6-10.3) mg/dL Magnesium (1.6-2.6) mg/dL Total Bilirubin (0.3-1.0) mg/dL AST (13-39) Units/L ALT (7-52) Units/L Alkaline Phosphatase (34-104) Units/L Troponin I (< 0.04) ng/mL B-Natriuretic Peptide (Less than 100) pg/mL Serum Total Protein (6.4-8.9) g/dL Albumin (3.5-5.7) g/dL Globulin (2.4-3.5) g/dL Albumin/Globulin Ratio (1.1-2.2) Urine Color [place] A (Yellow) Urine Clarity Clear (Clear) Urine pH 5.5 (5.0-8.0) pH Units Ur Specific [place] 1.023 (1.010-1.025) Urine Protein 30 H (Neg-Trace) mg/dL Urine Glucose (UA) Normal (Normal) mg/dL Urine Ketones Trace H (Negative) mg/dL Urine Blood Negative (Negative) Urine Nitrite Negative (Negative) Urine Bilirubin Small H (Negative) Urine Urobilinogen 2.0 H (Normal) mg/dL Ur Leukocyte Esterase Small H (Negative) Urine Microscopic RBC 3-5 H (0-3) per hpf Urine Microscopic WBC 5-15 H (0-3) per hpf Ur Squamous Epith Cells Many H (None-Few) per lpf Urine Bacteria None Seen (None-Few) per hpf Hyaline Casts Few (None-Few) per lpf 03/05/18 03/05/18 03/05/18 Range/Units 12:24 12:24 12:24 WBC (4.3-11.1) K/mcL RBC (4.19-5.50) M/mcL Hgb (12.9-16.9) g/dL Hct (37.5-50.1) % MCV (83.0-100.0) fL MCH (28.0-33.3) pg MCHC (31.6-35.5) g/dL RDW (11.5-14.5) % Plt Count (140-400) K/mcL MPV (9.4-12.4) fL Immature Gran % (0-4) % Seg Neutrophils % % Lymphocytes % % Monocytes % % Eosinophils % % Basophils % % Neutrophils # (1.6-8.9) K/mcL Lymphocytes # (0.6-4.6) K/mcL Monocytes # (0.0-1.3) K/mcL Eosinophils # (0.0-0.6) K/mcL Basophils # (0.0-0.2) K/mcL Nucleated RBCs/100 WBC (0) /100 WBC Immature Plt Fraction (1.1-6.1) % PT (9.4-12.1) Seconds INR Sample Site ABG pH (7.32-7.45) pH Units ABG pCO2 (35-45) mmHg ABG pO2 (85-104) mmHg ABG HCO3 (21-27) mEq/L ABG Total CO2 (20-26) mEq/L ABG O2 Saturation (95-98) % ABG Base Excess (-2 to 3) mEq/L O2 Delivery Device Inspired O2 (1-15=lpm [id number]=%) Sodium 147 H (136-145) mEq/L Potassium 3.3 L (3.5-5.1) mEq/L Chloride 103 (98-107) mEq/L Carbon Dioxide 29 (23-29) mEq/L BUN 40 H (8-23) mg/dL Creatinine 0.78 (0.70-1.30) mg/dL Est GFR ( Amer) > 60 (> 60) Est GFR (Non-Af Amer) > 60 (> 60) BUN/Creatinine Ratio 51 H (6-26) Glucose 119 H (70-105) mg/dL Calculated Osmolality 315 H (280-300) Lactic Acid 3.2 H (0.5-2.2) mmol/L Calcium 8.9 (8.6-10.3) mg/dL Magnesium 2.4 (1.6-2.6) mg/dL Total Bilirubin 4.7 H (0.3-1.0) mg/dL AST 158 H (13-39) Units/L ALT 71 H (7-52) Units/L Alkaline Phosphatase 179 H (34-104) Units/L Troponin I 0.05 H* (< 0.04) ng/mL B-Natriuretic Peptide 199 H (Less than 100) pg/mL Serum Total Protein 6.2 L (6.4-8.9) g/dL Albumin 3.3 L (3.5-5.7) g/dL Globulin 2.9 (2.4-3.5) g/dL Albumin/Globulin Ratio 1.1 (1.1-2.2) Urine Color (Yellow) Urine Clarity (Clear) Urine pH (5.0-8.0) pH Units Ur Specific [place] (1.010-1.025) Urine Protein (Neg-Trace) mg/dL Urine Glucose (UA) (Normal) mg/dL Urine Ketones (Negative) mg/dL Urine Blood (Negative) Urine Nitrite (Negative) Urine Bilirubin (Negative) Urine Urobilinogen (Normal) mg/dL Ur Leukocyte Esterase (Negative) Urine Microscopic RBC (0-3) per hpf Urine Microscopic WBC (0-3) per hpf Ur Squamous Epith Cells (None-Few) per lpf Urine Bacteria (None-Few) per hpf Hyaline Casts (None-Few) per lpf 03/05/18 Range/Units 12:29 WBC (4.3-11.1) K/mcL RBC (4.19-5.50) M/mcL Hgb (12.9-16.9) g/dL Hct (37.5-50.1) % MCV (83.0-100.0) fL MCH (28.0-33.3) pg MCHC (31.6-35.5) g/dL RDW (11.5-14.5) % Plt Count (140-400) K/mcL MPV (9.4-12.4) fL Immature Gran % (0-4) % Seg Neutrophils % % Lymphocytes % % Monocytes % % Eosinophils % % Basophils % % Neutrophils # (1.6-8.9) K/mcL Lymphocytes # (0.6-4.6) K/mcL Monocytes # (0.0-1.3) K/mcL Eosinophils # (0.0-0.6) K/mcL Basophils # (0.0-0.2) K/mcL Nucleated RBCs/100 WBC (0) /100 WBC Immature Plt Fraction (1.1-6.1) % PT (9.4-12.1) Seconds INR Sample Site R Brach ABG pH 7.55 H (7.32-7.45) pH Units ABG pCO2 39 (35-45) mmHg ABG pO2 114 H (85-104) mmHg ABG HCO3 34 H (21-27) mEq/L ABG Total CO2 35 H (20-26) mEq/L ABG O2 Saturation 99 H (95-98) % ABG Base Excess 11 H (-2 to 3) mEq/L O2 Delivery Device NRB Inspired O2 100.0 (1-15=lpm [id number]=%) Sodium (136-145) mEq/L Potassium (3.5-5.1) mEq/L Chloride (98-107) mEq/L Carbon Dioxide (23-29) mEq/L BUN (8-23) mg/dL Creatinine (0.70-1.30) mg/dL Est GFR ( Amer) (> 60) Est GFR (Non-Af Amer) (> 60) BUN/Creatinine Ratio (6-26) Glucose (70-105) mg/dL Calculated Osmolality (280-300) Lactic Acid (0.5-2.2) mmol/L Calcium (8.6-10.3) mg/dL Magnesium (1.6-2.6) mg/dL Total Bilirubin (0.3-1.0) mg/dL AST (13-39) Units/L ALT (7-52) Units/L Alkaline Phosphatase (34-104) Units/L Troponin I (< 0.04) ng/mL B-Natriuretic Peptide (Less than 100) pg/mL Serum Total Protein (6.4-8.9) g/dL Albumin (3.5-5.7) g/dL Globulin (2.4-3.5) g/dL Albumin/Globulin Ratio (1.1-2.2) Urine Color (Yellow) Urine Clarity (Clear) Urine pH (5.0-8.0) pH Units Ur Specific [place] (1.010-1.025) Urine Protein (Neg-Trace) mg/dL Urine Glucose (UA) (Normal) mg/dL Urine Ketones (Negative) mg/dL Urine Blood (Negative) Urine Nitrite (Negative) Urine Bilirubin (Negative) Urine Urobilinogen (Normal) mg/dL Ur Leukocyte Esterase (Negative) Urine Microscopic RBC (0-3) per hpf Urine Microscopic WBC (0-3) per hpf Ur Squamous Epith Cells (None-Few) per lpf Urine Bacteria (None-Few) per hpf Hyaline Casts (None-Few) per lpf - Radiology Data Radiology results reviewed: Yes I reviewed the patient's radiology results. Chest X-Ray 03/05/18 13:30 IMPRESSION: 1. Complete opacification again seen of the left hemithorax with leftward shift of the mediastinum. 2. There appears to been placement of a left pleural catheter. No convincing pneumothorax. 3. Hyperexpansion is seen of the right lung. D/ / Colton Richard MD / Colton Richard MD Interpreting Provider: Colton Richard MD - EKG Data EKG attestation: Yes I reviewed and interpreted this EKG. EKG results narrative: EKG done at 1206 shows sinus tachycardia with a rate of [address] depression noted in leads 2, 3, aVF, V6. Inverted T waves also noted in those leads. No acute ST elevation. ST depressions and T-wave inversions are new from prior EKG done 02/02/2018.
[2018-03-05 12:26] LABS: Bacteria,Urine None Seen per hpf (None-Few); Squamous Epithelial Cell,Urine Many per lpf (None-Few)
[2018-03-05 12:34] LABS: ABG Base Excess 11 mEq/L (-2 to 3); ABG HCO3 34 mEq/L (21-27); ABG Oxygen Saturation 99 % (95-98); ABG PCO2 39 mmHg (35-45); ABG PH 7.55 pH Units (7.32-7.45); ABG PO2 114 mmHg (85-104); ABG TCO2 35 mEq/L (20-26)
[2018-03-05 12:39] LABS: Hemoglobin 8.1 g/dL (12.9-16.9); Red Cell Distribution Width 16.1 % (11.5-14.5)
[2018-03-05 12:41] LABS: Basophils % 0.3 %; Immature Granulocytes % 3.8 % (0-4); Immature Platelets 4.8 % (1.1-6.1); Lymphocytes # 1.7 K/mcL (0.6-4.6); Mean Corpuscular HGB Conc 33.8 g/dL (31.6-35.5); Mean Corpuscular Hemoglobin 32.4 pg (28.0-33.3); Mean Platelet Volume 11.8 fL (9.4-12.4); Monocytes # 0.4 K/mcL (0.0-1.3); Monocytes % 4.3 %; Neutrophils # 6.5 K/mcL (1.6-8.9); Nucleated Red Blood Cells 3.3 /100 WBC (0); Segmented Neutrophils % 72.6 %
[2018-03-05 12:44] LABS: INR 1.2; Prothrombin Time 12.9 Seconds (9.4-12.1)
[2018-03-05 12:45] LABS: Hyaline Casts,Urine Few per lpf (None-Few)
[2018-03-05 13:00] LABS: Alanine Aminotransferase 71 Units/L (7-52); Albumin 3.3 g/dL (3.5-5.7); Albumin/Globulin Ratio 1.1 (1.1-2.2); Alkaline Phosphatase 179 Units/L (34-104); Aspartate Amino Transferase 158 Units/L (13-39); BUN/Creatinine Ratio 51 (6-26); Bilirubin,Total 4.7 mg/dL (0.3-1.0); Blood Urea Nitrogen 40 mg/dL (8-23); Calcium 8.9 mg/dL (8.6-10.3); Carbon Dioxide 29 mEq/L (23-29); Chloride 103 mEq/L (98-107); Globulin 2.9 g/dL (2.4-3.5); Glucose 119 mg/dL (70-105); Magnesium 2.4 mg/dL (1.6-2.6); Osmolality,Calculated 315 (280-300); Potassium 3.3 mEq/L (3.5-5.1); Sodium 147 mEq/L (136-145); Total Protein 6.2 g/dL (6.4-8.9); eGFR For African Americans > 60 (> 60); eGFR For Non-African Americans > 60 (> 60)
[2018-03-05 13:08] LABS: Platelet Count 30 K/mcL (140-400)
[2018-03-05 13:28] LABS: Troponin I 0.05 ng/mL (< 0.04)
[2018-03-05] MEDS ORDERED: 0.9 % Sodium Chloride 1,000 ML ONE (13:40)
[2018-03-05] MEDS ORDERED: *HR* Morphine 2 MG/ML SYRINGE IVP ONE (13:45)
[2018-03-05] MEDS ORDERED: Naloxone 0.4 MG/ML INJ IVP PRN (14:15)
[2018-03-05] MEDS ORDERED: Ondansetron 4 MG/2 ML VIAL IVP PRN (14:15)
[2018-03-05] MEDS ORDERED: Glycopyrrolate 0.2 MG/ML VIAL IVP PRN (14:18)
--- NOTE | 2018-03-05 14:22 | Internal Med History&Physical ---
Date of Encounter: 03/05/18 Time of Encounter: 14:20 Internal Medicine - H&P: HPI Chief complaint: Shortness of breath Admitted From: Emergency Dept History of present illness: Mr. Baker is a 72 year old male with a past medical history of small cell lung carcinoma and left malignant pleural effusion for history of prior pneumothorax 2 weeks ago. The patient came in respiratory distress, an x-ray showed a complete left opacification of the thorax. Source and T she is was attempted in the ER but unfortunately the patient decompensated rapidly became hypoxic blood pressure dropped to the 60s heart rate is 126 and at the moment he is completely unresponsive. The patient's POA who is his sister made the decision to keep him comfortable only. He situation is actively declining hemoglobin was 8.1 platelets were 30 sodium 147 lactic acid 3.2 AST 158 ALT 71 troponin 0.05 pH 7.55 PCO2 29 PO2 114 UA shows 15 white blood cells. The patient has agonal breathing and is completely unresponsive. Past Med Surg Social Fam HX - Past Medical History Medical history: cancer (Small cell carcinoma of the lung with left malignant pleural effusion), COPD (Severe COPD), hyperlipidemia, valvular heart disease, other (Gout) Psychiatric history: no psych history - Past Surgical History Surgical History: carotid endarterectomy, heart valve replacement (Aortic bioprosthetic valve), other (Thoracenteses, pneumothorax) Additional surgical history: aortic valve replacement - Social History Smoking Status: Former smoker Smokeless Tobacco Status: No Alcohol use: none Drug use: none - Family History Father Living Status: Hx Family Cardiac Disorders: Yes Mother Living Status: Hx Family GI Disorders: Yes (cirrhosis) - Additional Family History Additional family history: Mother: Hypertension Internal Medicine - H&P: Meds Aspirin 81 mg PO DAILY 09/02/16 [History] Atorvastatin [Lipitor] 40 mg PO DAILY 09/02/16 [History] Metoprolol XL (24 HR) Succ [Toprol Xl] 25 mg PO DAILY 09/02/16 [History] Albuterol Sulfate [Ventolin Hfa] 2 puff IH Q4-6H PRN 01/31/18 [History] Fluticasone/Salmeterol [Advair 250-50 Diskus] 1 puff IH BID 01/31/18 [History] Latanoprost [Xalatan] 1 drop OP HS 01/31/18 [History] Guaifenesin [Mucinex] 600 mg PO BID 02/17/18 [History] Loperamide [Imodium] 2 mg PO AD PRN #30 capsule 02/21/18 [Rx] Magic Mouthwash 5 ml PO Q4H PRN #240 ml 02/21/18 [Rx] Ondansetron ODT [Zofran ODT] 4 mg SL Q6HR #20 tab.rapdis 02/21/18 [Rx] Naproxen Sodium [Aleve] 220 mg PO BID PRN 02/22/18 [History] Allopurinol [Zyloprim 300 MG] 300 mg PO DAILY #30 tablet 02/23/18 [Rx] Dexamethasone [Decadron] 4 mg PO BID #30 tab 02/23/18 [Rx] Lidocaine/Prilocaine CREAM [Emla] 1 gm TP ONCE #1 tube 02/23/18 [Rx] Prochlorperazine Maleate [Compazine] 10 mg PO Q8HR PRN #90 tablet 02/23/18 [Rx] Prochlorperazine Maleate [Compazine] 10 mg PO Q8HR PRN #90 tablet 02/23/18 [Rx] Potassium Chloride [K-Tab ER] 10 meq PO DAILY #30 tablet.er 03/02/18 [Rx] 3 Allergy/AdvReac Type Severity Reaction Status Date / Time No Known Allergies Allergy Verified 03/05/18 11:45 All Systems PM: A 10-system review of systems was performed and is negative for pertinent findings except as documented above in the HPI. Review of systems: Unable to complete review of systems due to the patient's critical status - Constitutional Vitals: Temp Pulse Resp BP Pulse Ox 97.7 F 130 21 67/35 86 03/05/18 11:46 03/05/18 13:50 03/05/18 13:50 03/05/18 13:50 03/05/18 13:50 General appearance: Present: cachectic, A&O X 0 - Head Head exam: Present: atraumatic, normocephalic - Eye Eye exam: Present: PERRL, conjuntiva pink, sclera anicteric Pupils: Present: PERRL Additional comments: Pupils are pinpointed - Neck Neck exam general surgery: Present: supple, trachea midline. Absent: lymphadenopathy - Respiratory Respiratory exam: Present: accessory muscle use, CTAB, respiratory distress. Absent: rales, rhonchi, wheezes Additional comments: Blunted breath sounds on the left Thoracentesis catheter in place 1.5 L were removed - Cardiovascular Cardiovascular exam: Present: RRR, +S1, +S2, tachycardia. Absent: diastolic murmur, gallop, rubs, systolic murmur - GI/Abdominal GI/Abdominal exam: Present: normal bowel sounds, soft, no peritoneal signs. Absent: distended, tenderness - Extremities Exam Extremities exam: Present: cyanotic, mottling. Absent: calf tenderness, pedal edema, warm, radial pulses palpable and symmetrical - Neurological Exam Neurological exam: Absent: CN II-XII intact, oriented X3, no focal deficits, pronater drift, facial droop, speech deficit - Skin Skin exam: Present: dry. Absent: intact Internal Med - H&P Results - Labs CBC & Chem 7: 03/05/18 12:24 03/05/18 12:24 Labs: Short CBC 03/05/18 Range/Units 12:24 WBC 8.9 (4.3-11.1) K/mcL Hgb 8.1 L D (12.9-16.9) g/dL Hct 24.0 L (37.5-50.1) % Plt Count 30 L* (140-400) K/mcL Neutrophils # 6.5 (1.6-8.9) K/mcL BMP 03/05/18 12:24 Sodium 147 H Potassium 3.3 L Chloride 103 Carbon Dioxide 29 BUN 40 H Creatinine 0.78 Glucose 119 H Calcium 8.9 Cardiac Enzymes 03/05/18 Range/Units 12:24 Troponin I 0.05 H* (< 0.04) ng/mL Liver Function 03/05/18 Range/Units 12:24 Total Bilirubin 4.7 H (0.3-1.0) mg/dL AST 158 H (13-39) Units/L ALT 71 H (7-52) Units/L Alkaline Phosphatase 179 H (34-104) Units/L Albumin 3.3 L (3.5-5.7) g/dL Urine 03/05/18 Range/Units 12:00 Urine Color [place] A (Yellow) Urine Clarity Clear (Clear) Urine pH 5.5 (5.0-8.0) pH Units Ur Specific [place] 1.023 (1.010-1.025) Urine Protein 30 H (Neg-Trace) mg/dL Urine Glucose (UA) Normal (Normal) mg/dL - ABG Interpretation ABG results: 03/05/18 12:29 ABG pH 7.55 H ABG pCO2 39 ABG pO2 114 H ABG HCO3 34 H ABG Total CO2 35 H ABG O2 Saturation 99 H ABG Base Excess 11 H - Impressions ITS Impressions Chest X-Ray 03/05/18 11:46 IMPRESSION: Complete opacification of the left hemithorax including the distal aspect of the left mainstem bronchus, possibly with mucous plugging. Opacification is compatible with effusion and/or airspace disease to include at least a component of atelectasis. The findings were sent to the Radiology Results Communication Center at 1:03 pm on 03/05/2018to be communicated to a licensed caregiver. D/ / Darling Bueno Cha, MD / Darlign Bueno Cha, MD Interpreting Provider: Darling Bueno Cha, MD Chest X-Ray 03/05/18 13:30 IMPRESSION: 1. Complete opacification again seen of the left hemithorax with leftward shift of the mediastinum. 2. There appears to been placement of a left pleural catheter. No convincing pneumothorax. 3. Hyperexpansion is seen of the right lung. D/ / Colton Richard MD / Colton Richard MD Interpreting Provider: Colton Richard MD - Assessment and plan (1) Acute and chronic respiratory failure with hypoxia Current Visit: No Status: Acute Assessment and plan: Acute on chronic hypoxic respiratory failure secondary to left malignant pleural effusion We will provide only comfort care with Ativan, Roxanol as needed Scopolamine patch and Robinul IV Patient will be admitted as inpatient for inpatient hospice, palliative care will be consulted. Patient is a DNR CC. Time spent on these admission 40 minutes (2) Abnormal liver function tests Current Visit: No Status: Acute (3) Essential hypertension Current Visit: No Status: Acute Assessment and plan: Hypotensive now (4) Lung cancer Current Visit: No Status: Acute Qualifiers: Laterality: left Lung location: hilum of lung Qualified Code(s): C34.02 - Malignant neoplasm of left main bronchus (5) Coronary artery disease Current Visit: No Status: Chronic Assessment and plan: Stop all medications Qualifiers: Coronary Disease-Associated Artery/Lesion type: [place] artery [place] vs. transplanted heart: [place] heart Associated angina: without angina Qualified Code(s): I25.10 - Atherosclerotic heart disease of [place] coronary artery without angina pectoris (6) Status post aortic valve replacement Current Visit: No Status: Chronic - Time Spent With Patient Total time spent is greater than 50% in coordination of care (as documented) at patient's floor/unit and/or counseling patient:
[2018-03-05] MEDS ORDERED: Scopolamine Patch 1.5 MG PATCH.TD72 TD SCH (14:30)
[2018-03-05] MEDS ORDERED: *HR* LORazepam 2 MG/ML VIAL IVP ONE (15:17)
[2018-03-05] MEDS: OXYCODONE Oral CONC 10 MG/0.5 ML ORAL.SYG SL PRN (18:44)
[2018-03-06] MEDS: OXYCODONE Oral CONC 10 MG/0.5 ML ORAL.SYG SL PRN ×2 (05:03→09:19)
[2018-03-06] MEDS: *HR* LORazepam 2 MG/ML VIAL IVP PRN ×2 (05:48→09:20)
[2018-03-06 07:23] VITALS: BP 64/46
[2018-03-06] MEDS ORDERED: Haloperidol Lactate 5 MG/ML VIAL IVP PRN (09:53)
[2018-03-06] MEDS ORDERED: OXYCODONE Oral CONC 10 MG/0.5 ML ORAL.SYG SL PRN (09:58)
--- NOTE | 2018-03-06 10:18 | Discharge Summary ---
- NOTES TO OUTPATIENT PROVIDER Notes to Outpatient Provider: Discharge to inpatient hospice. Prognosis poor. Follow up with hospice physician. Date of Encounter: 03/06/18 Time of Encounter: 10:16 - Discharge Diagnosis (1) Acute and chronic respiratory failure with hypoxia Priority: Primary Status: Acute (2) Lung cancer Priority: Secondary Status: Chronic Qualifiers: Laterality: left Lung location: hilum of lung Qualified Code(s): C34.02 - Malignant neoplasm of left main bronchus (3) Status post aortic valve replacement Priority: Secondary Status: Chronic (4) Coronary artery disease Priority: Secondary Status: Chronic Qualifiers: Coronary Disease-Associated Artery/Lesion type: grindstone artery [place] vs. transplanted heart: grindstone heart Associated angina: without angina Qualified Code(s): I25.10 - Atherosclerotic heart disease of grindstone coronary artery without angina pectoris (5) Abnormal liver function tests Priority: Secondary Status: Acute (6) Essential hypertension Priority: Secondary Status: Chronic Hospital course: Mr. Baker is a 72 year old male Discharge discussed with: patient, family, senior compensation consultant (Palliative Care Physician ) - Time Spent with Patient Total time spent providing and/or coordinating discharge services: Greater than 30 minutes - Discharge Medications Home Medications: Glycopyrrolate [Robinul] 0.4 mg IVP Q4H PRN vial 03/06/18 [Rx] Haloperidol Lactate [Haldol] 1 mg IVP Q4H PRN vial 03/06/18 [Rx] LORazepam [Ativan] 1 mg IVP Q1H PRN 1 Days #1 vial 03/06/18 [Rx] Naloxone [Narcan] 0.4 mg IVP Q2MIN PRN inj 03/06/18 [Rx] OXYCODONE Oral CONC [Oxycodone Oral Conc] 10 mg SL Q1H PRN 1 Days #1 oral.syg [Rx] Ondansetron [Zofran] 4 mg IVP Q8H PRN vial 03/06/18 [Rx] Scopolamine Patch [Transderm-Scop] 1.5 mg TD Q72H patch.td72 03/06/18 [Rx] Allergies/Adverse Reactions: 3 Allergy/AdvReac Type Severity Reaction Status Date / Time No Known Allergies Allergy Verified 03/05/18 14:46 Date of admission: 03/05/18 17:24 Primary care physician: Raheem Hubbard MD Consults: Palliative Care Discharging clinician: Gerardo Alves Anticipated date of discharge: 03/06/18 - Constitutional Vitals: Temp Pulse Resp BP Pulse Ox 97.6 F 118 21 64/46 92 03/06/18 07:20 03/06/18 07:20 03/06/18 07:20 03/06/18 07:20 03/06/18 07:20 General appearance: Present: cachectic, A&O X 0, no acute distress. Absent: answers questions appropriately - Respiratory Respiratory exam: Present: rales. Absent: accessory muscle use, rhonchi, wheezes Additional comments: Mildly labored WOB, agonal breathing, coarse breath sounds bilaterally - Cardiovascular Cardiovascular exam: Present: RRR, +S1, +S2. Absent: diastolic murmur, gallop, rubs, systolic murmur Additional comments: No BLE edema - GI/Abdominal GI/Abdominal exam: Present: normal bowel sounds, soft. Absent: distended, hepatomegaly, mass, splenomegaly, tenderness - Psychiatric Psychiatric exam: Absent: agitated, anxious Additional comments: Unable to fully evaluate due to patient's unresponsive state - Skin Skin exam: Present: dry, intact, warm. Absent: cyanosis, rash - Patient Status Disposition: Hospice - Medical Facility Condition: Critical Functional capacity at discharge: bed bound Overall status at discharge: patient is not back to baseline - Discharge Instructions Follow Up With: Raheem Hubbard MD [Primary Care Provider] - Additional Instructions: Discharge to inpatient hospice. Prognosis poor. Follow up with hospice physician. - Diet and Activity Activity: resume usual activities as tolerated Diet: regular diet - VTE Reasons for not Prescribing Prophylaxis: Refused by patient
--- NOTE | 2018-03-06 11:30 | Death Note ---
Discharge Sum: Summary - Date and Time Date of admission: 03/05/18 17:24 Date of : 03/06/18 Time of : 10:33 - Summary Details: The patient was originally admitted for shortness of breath. Had a recurrent left malignant pleural effusion for which they tried to tap patient decompensated. Patient had already been told by oncology that they had nothing to offer due to the advanced nature of his small cell lung cancer. At point family opted for comfort care only. The patient was in the process of being evaluated for hospice and he passed quietly and comfortably with family at bedside. Cause of is small cell lung cancer diagnosed approximately 1 month ago. Comorbidities peripheral vascular disease and valvular heart disease. COPD Patient was a former smoker. - Additional Data Confirmation of as documented by pronouncing clinician: no pulse, no respirations, no heart sounds Family: at bedside Attending/PCP notified?: Yes Attending physician: Fabian Larios MD Was code activated?: No Autopsy requested?: No roll examiner notified?: No Organ bank notified?: Yes Advance directives: Yes Hospice patient?: No (was in process of beign signed up for hospice) Discharge Sum: Diag - PCOD Probable Cause of : Respiratory arrest Discharge Sum: Prov - Provider Primary care physician: Raheem Hubbard MD
--- NOTE | 2018-03-06 12:02 | Palliative - Consult Note ---
<Navid Watt - Last Filed: 03/06/18 11:58> Date of Encounter: 03/06/18 Time of Encounter: 08:45 - Assessment and Plan (1) Acute and chronic respiratory failure with hypoxia Current Visit: Yes Status: Acute Assessment and plan: Acute on chronic respiratory failure Secondary to Small cell lung cancer and malignant pleural effusion Attempted thoracentesis was unsuccessful CXR shows recurrent effusion with left mediastinal shift Discomfort managed with SL Oxycodone and ativan We will increase frequency for comfort measures (2) Pleural effusion Current Visit: Yes Status: Acute Assessment and plan: Initially managed per primary team Comfort care measures in place, manage discomfort as above (3) Lung cancer Current Visit: Yes Status: Chronic Assessment and plan: Left small cell lung carcinoma with malignant pleural effusion No treatment has been initiated due to the advanced nature of cancer Qualifiers: Laterality: left Lung location: hilum of lung Qualified Code(s): C34.02 - Malignant neoplasm of left main bronchus (4) Counseling regarding goals of care Current Visit: Yes Status: Acute Assessment and plan: Discussed the goals of treatment with the family, including the patient's who is the POA. She affirms that she wants measures to keep him comfortable. She would like to try hospice, and improve his current pain treatment protocol. Given the critical status he now occupies, and the fact that he shows occasional grimace or myoclonic reaction, it is reasonable to increase the frequency of his analgesia and anxiolytic therapies. We will also add PRN haldol for terminal delirium. The patient will be placed under [facility] hospice. His prognosis is very poor, and he will likely during this admission. The patient's family is aware, and agrees to this plan. Palliative-CN HPI - Data of Consult Patient: new to practice Consult date: 03/06/18 Requesting Physician: Fabian Larios MD Primary Care Provider: Raheem Hubbard MD - Consult Narrative Palliative Care/Comfort Measures: Hospice care Reason for consult: Small cell lung cancer/end-of-life planning History of present illness: Mr. Baker is a 72 year old male with history of small cell lung cancer and left malignant pleural effusion with recent history of pneumothorax 2 weeks ago. The patient came in with respiratory distress and ultimately was found to have significant left malignant effusion with total opacification of the left hemithorax. In the ED the patient was found to be in distress with rapid breathing, and a decision was made to attempt a thoracentesis for fluid removal. During this procedure the patient's blood pressure began to drop and his heart rate began to rise, and apparently the patient developed unresponsiveness during the procedure. It was noted on arrival the patient's clinical picture has been rapidly deteriorating including a significant drop in all cell lines suggesting aplastic anemia of some sort, and he also developed a lactic acidosis which became progressively worse throughout the night. Ultimately, the decision was made by the patient's power of corporate attorney that comfort care measures would be most appropriate. Palliative care was consulted for initiation of transition to hospice care. CC: Fabian Larios MD Past Med Surg Social Fam HX - Past Medical History Medical history: cancer, COPD, hyperlipidemia, valvular heart disease Psychiatric history: no psych history - Past Surgical History Surgical History: carotid endarterectomy, heart valve replacement Additional surgical history: aortic valve replacement - Social History Smoking Status: Former smoker Smokeless Tobacco Status: No Alcohol use: none Drug use: none - Family History Father Living Status: Hx Family Cardiac Disorders: Yes Mother Living Status: Hx Family GI Disorders: Yes (cirrhosis) Medications and Allergies Glycopyrrolate [Robinul] 0.4 mg IVP Q4H PRN vial 03/06/18 [Rx] Haloperidol Lactate [Haldol] 1 mg IVP Q4H PRN vial 03/06/18 [Rx] LORazepam [Ativan] 1 mg IVP Q1H PRN 1 Days #1 vial 03/06/18 [Rx] Naloxone [Narcan] 0.4 mg IVP Q2MIN PRN inj 03/06/18 [Rx] OXYCODONE Oral CONC [Oxycodone Oral Conc] 10 mg SL Q1H PRN 1 Days #1 oral.syg [Rx] Ondansetron [Zofran] 4 mg IVP Q8H PRN vial 03/06/18 [Rx] Scopolamine Patch [Transderm-Scop] 1.5 mg TD Q72H patch.td72 03/06/18 [Rx] 3 Allergy/AdvReac Type Severity Reaction Status Date / Time No Known Allergies Allergy Verified 03/05/18 14:46 ROS unobtainable: due to mental status Review of systems: Review of systems cannot be obtained due to patient's mental status. He is currently unconscious and having agonal respirations. Palliative Care-Exam - Constitutional Vitals: Temp Pulse Resp BP Pulse Ox 97.6 F 118 21 64/46 92 03/06/18 07:20 03/06/18 07:20 03/06/18 07:20 03/06/18 07:20 03/06/18 07:20 General appearance: Present: mild distress, thin Exam: Gen: Vitals noted. Patient is unresponsive to verbal, physical, painful stimuli. Appears mildly distressed with occasional muscle twitching. HEENT: oropharynx clear, Normocephalic, atraumatic Neck: Supple. No adenopathy. Cardiac: RRR, no murmur, +S1/S2 Pulmonary: Lung sounds are diminished bilaterally left greater than right, agonal respirations on exam Abdomen: soft, nontender, BS noted, no guarding Extremities: no BLE edema, nontender calf, no cyanosis or clubbing Neuro: Patient is unresponsive Internal Medicine - CN: Reslt - Labs CBC & Chem 7: 03/05/18 12:24 03/05/18 12:24 - ABG Interpretation ABG results: ABG ABG pH 7.55 pH Units (7.32-7.45) H 03/05/18 12:29 ABG pCO2 39 mmHg (35-45) 03/05/18 12:29 ABG pO2 114 mmHg (85-104) H 03/05/18 12:29 ABG O2 Saturation 99 % (95-98) H 03/05/18 12:29 PT/INR, D-dimer PT 12.9 Seconds (9.4-12.1) H 03/05/18 12:24 Consult Discharge Plan - Plan Additional Instructions: Discharge to inpatient hospice. Prognosis poor. Follow up with hospice physician. Referrals: Raheem Hubbard MD [Primary Care Provider] - Palliative Quality Palliative Quality: Screen for Code Status: Yes, Screen for Goals of Care: Yes, Screen for Pain: Yes, If Pain Regimen Started, Initiate Bowel Regimen: Yes, Screen for Nausea/Vomitting: Yes Code Status: DNR CC <Star Mansfield - Last Filed: 03/06/18 12:50> Date of Encounter: 03/06/18 - Assessment and Plan (1) Lung cancer Current Visit: Yes Status: Chronic Qualifiers: Laterality: left Lung location: hilum of lung Qualified Code(s): C34.02 - Malignant neoplasm of left main bronchus (2) Acute exacerbation of chronic obstructive airways disease Current Visit: No Status: Acute Palliative-CN HPI - Data of Consult Requesting Physician: Fabian Larios MD Primary Care Provider: Raheem Hubbard MD - Consult Narrative History of present illness: Mr. Baker is a 72 year old male CC: Fabian Larios MD Palliative Care-Exam - Constitutional Vitals: Temp Pulse Resp BP Pulse Ox 97.6 F 118 21 64/46 92 03/06/18 07:20 03/06/18 07:20 03/06/18 07:20 03/06/18 07:20 03/06/18 07:20 Internal Medicine - CN: Reslt - Labs CBC & Chem 7: 03/05/18 12:24 03/05/18 12:24 - ABG Interpretation ABG results: ABG ABG pH 7.55 pH Units (7.32-7.45) H 03/05/18 12:29 ABG pCO2 39 mmHg (35-45) 03/05/18 12:29 ABG pO2 114 mmHg (85-104) H 03/05/18 12:29 ABG O2 Saturation 99 % (95-98) H 03/05/18 12:29 PT/INR, D-dimer PT 12.9 Seconds (9.4-12.1) H 03/05/18 12:24 - Attending Attestation I examined this patient and my medical decision-making was reviewed with the Resident Physician. I agree with the documented findings, disposition and treatment plan as described except to the extent set forth below. The patient shortly after He was seen by myself and the resident. We are in the process of changing him over to general inpatient hospice.
--- NOTE | 2018-03-06 17:24 | Electrocardiograph Report ---
[place] [id number] Test Date: 2018-03-05 Pat Name: Timi Baker Department: 103 Room: 2A45 Gender: M Civil Designer: LEONOR : 1945 Requested By: Chung Sanchez Order Number: [id number] Reading MD: Yolette Barry Measurements Intervals [place] Rate: 107 P: 73 CO: 102 QRS: 50 QRSD: 89 T: 265 QT: 350 QTc: 412 Interpretive Statements SINUS TACHYCARDIA WITH SHORT CO INTERVAL LEFT ATRIAL ENLARGEMENT [-0.15mV P WAVE IN V1/V2] ST DEVIATION AND MODERATE T-WAVE ABNORMALITY, CONSIDER INFERIOR ISCHEMIA [-0.1+ mV T WAVE IN II/aVF] Electronically Signed On 03-06-2018 17:22:58 EDT by Yolette Barry
== END 2018-03-06 13:03 | disposition hospice, inpatient (51) | DRG 180 ==
LOC: EMEROO 11:43 → 2ANU 17:24
PROVIDERS: ADMIT Family Medicine; ATTEND Family Medicine